=== PATIENT | male | born 1960 | race Two or more races ===

== ENCOUNTER 2024-12-08 10:56 | Inpatient (IN) | payer MEDICAID, OTHER ==
[~2024-12-08] VITALS: Ht 175.3 cm; Wt 81.6 kg
--- NOTE | 2024-12-08 11:32 | ED.PDOC ---
GI ASSESSMENT HPI Comments This is a 64 year old male presenting to the ED with chief complaint of abdominal pain. Patient reports that he has had a right inguinal hernia for the past 9 years, however, he has noticed it get bigger over the past 2 weeks with associated pain, constipation, poor appetite, nausea, SOB, and increased fatigue. Patient notes that the hernia has not been reducible for the past several years. Patient states that his last bowel movement was a week ago. Patient relays that he has been taking Naproxen for pain relief. Patient denies any vomiting, diarrhea, fever, chills, dysuria, or flank pain. Chief Complaint: Abdominal Pain Time Seen by MD: 11:31 Reviewed Notes: Nurses Notes, Medications, Allergies Allergies: Coded Allergies: NO KNOWN ALLERGIES (Unverified , 12/08/24) Information Source: Patient Mode of Arrival: Ambulatory Timing: Weeks Duration: Since onset Prehospital treatment: None Quality: Sharp Vomitus: None Stool: Impaction Severity: Moderate Recent: None Recent Hx of: None Pain Location: Suprapubic Modifying Factors: Nothing Associated sign and symptoms: Nausea, Abdominal Pain Past Medical History Past Medical History (Other): Rt inguinal hernia Surgical History: Denies all surgeries Family History Family History: Reviewed,noncontributory to illness Social History Smoker: Non-Smoker Alcohol: Denies ETOH Use Drugs: Denies Drug Use Lives In: Home Constitutional: reports: fatigue; denies: chills, diaphoresis, fever, malaise, sweats, weakness, others EENTM: denies: blurred vision, double vision, ear bleeding, ear discharge, ear drainage, ear pain, ear ringing, eye pain, eye redness, hearing loss, mouth pain, mouth swelling, nasal discharge, nose bleeding, nose congestion, nose pain, photophobia, tearing, throat pain, throat swelling, voice changes, others Respiratory: reports: shortness of breath; denies: cough, hemoptysis, orthopnea, SOB at rest, SOB with excertion, stridor, wheezing, others Cardiovascular: denies: chest pain, dizzy spells, diaphoresis, Dyspnea on exertion, edema, irregular heart beat, left arm pain, lightheadedness, palpitations, PND, syncope, others Gastrointestinal: reports: abdominal pain, constipated, nausea, poor appetite; denies: abdomen distended, blood streaked bowels, diarrhea, dysphagia, difficulty swallowing, hematemesis, melena, poor fluid intake, rectal bleeding, rectal pain, vomiting, others Genitourinary: denies: burning, dysuria, flank pain, frequency, hematuria, incontinence, penile discharge, penile sore, pain, testicle pain, testicle swelling, urgency, others Neurological: denies: dizziness, fainting, headache, left sided numbness, left sided weakness, numbness, paresthesia, pre-existing deficit, right sided numbness, right sided weakness, seizure, speech problems, tingling, tremors, weakness, others Musculoskeletal: denies: back pain, gout, joint pain, joint swelling, muscle pain, muscle stiffness, neck pain, others Integumetry: denies: bruises, change in color, change in hair/nails, dryness, laceration, lesions, lumps, rash, wounds, others Allergic/Immunocompromised: denies: Difficulty Healing, Frequent Infections, Hives, Itching, others Hematologic/Lymphatic: denies: anemia, blood clots, easy bleeding, easy bruising, swollen glands, others Endocrine: denies: excessive hunger, excessive sweating, excessive thirst, excessive urination, flushing, intolerance to cold, intolerance to heat, unexplained weight gain, unexplained weight loss, others Psychiatric: denies: anxiety, bipolar disorder, depression, hopeless, panic disorder, schizophrenia, sleepless, suicidal, others All Other Systems: Reviewed and Negative Physical Exam General Appearance: Mild Distress HEENT: Other (Pupils and face symmetric. Moist mucous membranes.) Neck: Full Range of Motion, Normal Inspection Respiratory: Decreased Breath Sounds, No Accessory Muscle Use, No Respiratory Distress Cardiovascular: No Edema, No JVD, Regular Rate/Rhythm Breast Exam: Deferred Gastrointestinal: Distended, Epigastric, Tenderness, Other (Right inguinal hernia soft, tender, nonreducible. Epigastric tenderness to palpation. Diffuse abdominal distention.) Genitalia: Deferred Pelvic: Deferred Rectal: Deferred Extremities: Normal inspection, Normal range of motion, Non-tender, No pedal edema Neurologic: Alert (Oriented x4), Other (Ambulatory) Cerebellar Function: NOT DONE Reflexes: NOT DONE Skin: Dry, Normal Color, Warm Lymphatic: NOT DONE Was a procedure done? Was a procedure done?: No GI differential Dx Differential Diagnosis: Bowel Obstruction, Constipation, Diverticular disease, Gastroenteritis, Inflammatory BD, Ischemic Bowel, Pancreatitis, Dehydration, Electrolyte Imbalance, Food Poisoning, Bacterial, Viral, Hypovolemia, Impaction, Ischemic Bowel X-Ray, Labs, Meds, VS Vital Signs Date Time Temp Pulse Resp B/P (MAP) Pulse Ox O2 Delivery O2 Flow Rate FiO2 12/08/24 15:38 101 12/08/24 15:13 Room Air* 0 21 12/08/24 15:12 98.3 67 17 130/86 (101) 99 98.3 12/08/24 15:06 67 17 130/86 12/08/24 10:58 98.2 107 19 142/90 99 98.2 Lab Test 12/08/24 14:48 12/08/24 13:10 12/08/24 12:00 12/08/24 11:24 Range/Units Lactic Acid Level 2.7 *H 3.4 *H 0.4-2.0 mmol/L Troponin I High Sensitivity 75 *H 74 *H 86 *H </=54 ng/L White Blood Count 7.3 4.4-10.8 10^3/uL Red Blood Count 4.80 4.5-5.90 10^6/uL Hemoglobin 14.6 13.5-17.5 g/dL Hematocrit 43.9 41.0-53.0 % Mean Corpuscular Volume 91.5 80.0-100.0 fL Mean Corpuscular Hemoglobin 30.5 28.0-32.0 pg Mean Corpuscular Hemoglobin Concent 33.3 32.0-36.0 g/dL Red Cell Distribution Width 15.0 H 11.8-14.3 % Platelet Count 296 140-450 10^3/uL Mean Platelet Volume 7.9 6.9-10.8 fL Neutrophils (%) (Auto) 79.8 37.0-80.0 % Lymphocytes (%) (Auto) 9.2 L 10.0-50.0 % Monocytes (%) (Auto) 10.4 0.0-12.0 % Eosinophils (%) (Auto) 0.2 0.0-7.0 % Basophils (%) (Auto) 0.4 0.0-2.0 % Neutrophils # (Auto) 5.8 1.6-8.6 10 ^3/uL Lymphocytes # (Auto) 0.7 0.4-5.4 10 ^3/uL Monocytes # (Auto) 0.8 0-1.3 10 ^3/uL Eosinophils # (Auto) 0 0-0.8 10 ^3/uL Basophils # (Auto) 0 0-0.2 10 ^3/uL Nucleated Red Blood Cells 0.2 % Sodium Level 139 136-145 mmol/L Potassium Level 4.3 3.5-5.1 mmol/L Chloride Level 105 98-107 mmol/L Carbon Dioxide Level 21 20-31 mmol/L Anion Gap 13 5-15 Blood Urea Nitrogen 17 9-23 mg/dL Creatinine 1.34 H 0.700-1.30 mg/dL Glomerular Filtration Rate Calc 60 >90 mL/min BUN/Creatinine Ratio 12.7 10.0-20.0 Serum Glucose 119 H 74-106 mg/dL Calcium Level 9.1 8.7-10.4 mg/dL Total Bilirubin 3.1 H 0.2-1.0 mg/dL Aspartate Amino Transferase (AST) 355 H 13-40 U/L Alanine Aminotransferase (ALT) 548 H 7-40 U/L Alkaline Phosphatase 115 46-116 U/L Total Protein 6.4 5.7-8.2 g/dL Albumin 3.9 3.2-4.8 g/dL Lipase 79 H 12-53 U/L Urine Color Yellow Yellow Urine Clarity Turbid H Clear Urine pH 5.5 5.0-9.0 Urine Specific [place] 1.022 1.001-1.035 Urine Protein Trace H Negative Urine Ketones Negative Negative Urine Blood Negative Negative /uL Urine Nitrite Negative Negative Urine Bilirubin Negative Negative Urine Urobilinogen 3 H Negative mg/dL Urine Leukocyte Esterase 2+ Negative /uL Urine RBC 2 0 - 3 /hpf Urine Microscopic WBC 14 H 0-3 /HPF Urine Squamous Epithelial Cells Few <5 /hpf Urine Bacteria Few H None Seen /hpf Urine Mucus Few None Seen Urine Glucose Normal Normal mg/dL Current Medications Medications (Trade) Dose Ordered Sig/Chitra Route Start Time Stop Time Status Last Admin Sodium Chloride 2,100 ml @ 2,100 mls/hr ONCE ONCE IV 12/08/24 11:30 12/08/24 12:29 DC 12/08/24 15:05 Ondansetron HCl (Zofran) 4 mg ONCE ONCE IV 12/08/24 11:30 12/08/24 11:31 DC 12/08/24 15:05 Morphine Sulfate 4 mg ONCE ONCE IV 12/08/24 11:30 12/08/24 11:31 DC 12/08/24 15:06 Pantoprazole Sodium (Protonix) 40 mg ONCE ONCE IV 12/08/24 11:30 12/08/24 11:31 DC 12/08/24 15:04 Lactulose 60 ml ONCE ONCE PO 12/08/24 13:00 12/08/24 13:01 DC 12/08/24 15:05 Spironolactone (Aldactone) 50 mg ONCE ONCE PO 12/08/24 13:00 12/08/24 13:01 DC 12/08/24 15:05 PROCEDURE(s): ABPL - CT AB PEL WO CON-NO ORAL OR IV REASON: diffuse abd pain, n/v, no bm x 5d, R ing hernia pain ORDER NUMBER(s): [id number], ACCESSION NUMBER(s): [id number] EXAM: CT CT AB PEL WO CON-NO ORAL OR IV INDICATION: diffuse abd pain, n/v, no bm x 5d, R ing hernia pain TECHNIQUE: Volumetric multidetector CT images of the abdomen and pelvis were obtained without contrast. All CT scans at this facility use dose modulation, iterative reconstruction, and/or weight based dosing when appropriate to reduce radiation dose to as low as reasonably achievable. COMPARISON: None FINDINGS: [LOWER CHEST]: Medium right and small left pleural effusions. Atelectasis in bilateral lung bases. The cardiac size is normal without pericardial effusion. [LIVER]: Question slight nodular contour to the liver [GALLBLADDER AND BILIARY TREE]: Question biliary sludge [SPLEEN]: Unremarkable. [PANCREAS]: Unremarkable. [ADRENAL GLANDS]: Unremarkable [KIDNEYS]: No hydronephrosis. No nephroureterolithiasis. [BLADDER]: Circumferential bladder wall thickening, which may be seen in the setting of acute versus chronic cystitis and correlate with urinalysis. [REPRODUCTIVE ORGANS]: Unremarkable. [BOWEL/MESENTERY]: Stomach is normal. No CT evidence of bowel obstruction. [ASCITES]: Mild ascites [LYMPHADENOPATHY]: No pathologically enlarged lymph nodes by CT size criteria [VASCULATURE]: No aneurysmal dilatation. [ABDOMINAL WALL]: Fat and bowel containing right inguinal hernia [MUSCULOSKELETAL]: No acute fracture or aggressive focal osseous lesion. Multifocal degenerative change of the visualized spine. IMPRESSION: 1. Medium right and small left pleural effusions. 2. Question slight nodular contour to the liver. Correlate for underlying liver disease. 3. Mild ascites. 4. Circumferential bladder wall thickening, which may be seen in the setting of acute versus chronic cystitis and correlate with urinalysis. 5. Fat and bowel containing hernia with slight edema. Correlate with clinical exam to exclude incarceration. X-Ray, Labs, Meds, VS Comment 64-year-old male with a history of right inguinal hernia complaining of hernia pain, diffuse abdominal pain, distention, constipation, nausea and no bowel movement for the past week Vitals remarkable for heart rate 107, BP 102/90 Exam remarkable for diffuse abdominal distention, epigastric and right inguinal hernia area tenderness Rhythm strip independently interpreted by me: Sinus tach, rate 107, no ectopy. CT abdomen and pelvis IMPRESSION: 1. Medium right and small left pleural effusions. 2. Question slight nodular contour to the liver. Correlate for underlying liver disease. 3. Mild ascites. 4. Circumferential bladder wall thickening, which may be seen in the setting of acute versus chronic cystitis and correlate with urinalysis. 5. Fat and bowel containing hernia with slight edema. Correlate with clinical exam to exclude incarceration. CBC unremarkable, CMP creatinine 1.34, total bili 3.1, AST 355, ALT 548, lipase 79. lactate 3.4, troponins 86, 74 and 75, UA abnormal consistent with UTI Patient treated with the following in the ED: 30 cc/kilogram IV normal saline bolus, morphine 4 mg IV, Zofran 4 mg IV, lactulose 60 mL p.o., Aldactone 50 mg p.o., cefepime 2 g IV, aspirin 325 mg p.o. On re-evaluation, patient states pain has improved. Vitals were stable. Plan is to admit the patient for IV antibiotics, bowel decompression, surgical/GI and Cardiology evaluation. Time of 1ST Reevaluation: 12:30 Reevaluation 1ST: Unchanged Patient Education/Counseling: Diagnosis, Treatment Family Education/Counseling: No Family Present SEPSIS Sepsis Screen Date sepsis recognized/suspect: Dec 08, 2024 Time Sepsis recognized/suspect: 1058 Recent Procedure: No On Antibiotic Therapy: No Respiratory Rate >20: No Heart Rate >90: Yes Temp<36 C (96.8 F) or >38.3 C: No SBP <90 or MAP <65 mmHG: No New Acute Mental Status Change: No Is the patient on CPAP, BIPAP,: No Physician Orders Ct Ab Pel Wo Con-No Oral Or Iv (12/08/24 11:24) Blood Culture (12/08/24 11:24) Electrocardigram (12/08/24 11:24) * Surgical Consult (12/08/24 ) Cefepime 2gm/50ml Ns (Maxipime 2gm/50ml) (12/08/24 21:45) Aspirin Tablet (12/08/24 21:45) Vital Signs Date Time Temp Pulse Resp B/P (MAP) Pulse Ox O2 Delivery O2 Flow Rate FiO2 12/08/24 15:38 101 12/08/24 15:13 Room Air* 0 21 12/08/24 15:12 98.3 67 17 130/86 (101) 99 98.3 12/08/24 15:06 67 17 130/86 12/08/24 10:58 98.2 107 19 142/90 99 98.2 Laboratory Tests Test 12/08/24 12:00 12/08/24 14:48 Lactic Acid Level 3.4 mmol/L (0.4-2.0) *H 2.7 mmol/L (0.4-2.0) *H White Blood Count 7.3 10^3/uL (4.4-10.8) Medications Medications Dose Ordered Sig/Chitra Route Start Time Stop Time Status Last Admin Dose Admin Lactulose 60 ml ONCE ONCE PO 12/08/24 13:00 12/08/24 13:01 DC 12/08/24 15:05 Morphine Sulfate 4 mg ONCE ONCE IV 12/08/24 11:30 12/08/24 11:31 DC 12/08/24 15:06 Ondansetron HCl 4 mg ONCE ONCE IV 12/08/24 11:30 12/08/24 11:31 DC 12/08/24 15:05 Pantoprazole Sodium 40 mg ONCE ONCE IV 12/08/24 11:30 12/08/24 11:31 DC 12/08/24 15:04 Sodium Chloride 2,100 ml @ 2,100 mls/hr ONCE ONCE IV 12/08/24 11:30 12/08/24 12:29 DC 12/08/24 15:05 Spironolactone 50 mg ONCE ONCE PO 12/08/24 13:00 12/08/24 13:01 DC 12/08/24 15:05 Reassessment Post Fluid SEPSIS FOCUS EXAM(REASSESSMENT Sepsis reassessment focused exam completed. Date: 12/08/24 Time 21:48 Departure 1 Departure Time of Disposition: 13:28 Impression: Primary Impression: Right inguinal hernia Additional Impressions: Ascites Qualified Codes: R18.8 - Other ascites Pleural effusion UTI (urinary tract infection) Elevated troponin Sepsis Disposition: ADMITTED INPATIENT Admit to: Tele Condition: Guarded Critical Care Note Critical Care Time?: Yes (45 min-critical care time only) Critical care comment: Critical care time including multiple bedside re-evaluations, review of lab and imaging studies, and discussion of the case with the admitting provider. Patient is high risk for hemodynamic, respiratory and/or metabolic decompensation. Stability Stability form required: No Heart Score Heart Score: Heart Score Response (Comments) Value History N/A 0 EKG N/A 0 Age N/A 0 Risk Factors N/A 0 Troponin N/A 0 Total 0 I personally scribed for FAUSTINO BRODY MD ([email or web address]) on 12/08/24 at 11:32. Electronically submitted by Moose Ellsworth ([email or web address]). I personally scribed for FAUSTINO BRODY MD ([email or web address]) on 12/08/24 at 12:58. Electronically submitted by Moose Ellsworth ([email or web address]). FAUSTINO BRODY MD Dec 08, 2024 11:32
--- NOTE | 2024-12-08 12:29 | DVH ---
EXAM: CT CT AB PEL WO CON-NO ORAL OR IV INDICATION: diffuse abd pain, n/v, no bm x 5d, R ing hernia pain TECHNIQUE: Volumetric multidetector CT images of the abdomen and pelvis were obtained without contras t. All CT scans at this facility use dose modulation, iterative reconstruction, and/or weight based d osing when appropriate to reduce radiation dose to as low as reasonably achievable. COMPARISON: None FINDINGS: [LOWER CHEST]: Medium right and small left pleural effusions. Atelectasis in bilateral lung bases. T he cardiac size is normal without pericardial effusion. [LIVER]: Question slight nodular contour to the liver [GALLBLADDER AND BILIARY TREE]: Question biliary sludge [SPLEEN]: Unremarkable. [PANCREAS]: Unremarkable. [ADRENAL GLANDS]: Unremarkable [KIDNEYS]: No hydronephrosis. No nephroureterolithiasis. [BLADDER]: Circumferential bladder wall thickening, which may be seen in the setting of acute versus chronic cystitis and correlate with urinalysis. [REPRODUCTIVE ORGANS]: Unremarkable. [BOWEL/MESENTERY]: Stomach is normal. No CT evidence of bowel obstruction. [ASCITES]: Mild ascites [LYMPHADENOPATHY]: No pathologically enlarged lymph nodes by CT size criteria [VASCULATURE]: No aneurysmal dilatation. [ABDOMINAL WALL]: Fat and bowel containing right inguinal hernia [MUSCULOSKELETAL]: No acute fracture or aggressive focal osseous lesion. Multifocal degenerative hendricks ge of the visualized spine. IMPRESSION: 1. Medium right and small left pleural effusions. 2. Question slight nodular contour to the liver. Correlate for underlying liver disease. 3. Mild ascites. 4. Circumferential bladder wall thickening, which may be seen in the setting of acute versus chronic cystitis and correlate with urinalysis. 5. Fat and bowel containing hernia with slight edema. Correlate with clinical exam to exclude incarc eration.
[2024-12-08 12:33] LABS: Hematocrit 43.9 % (41.0-53.0); Hemoglobin 14.6 g/dL (13.5-17.5); Mean Corpuscular Hemoglobin 30.5 pg (28.0-32.0); Mean Corpuscular Volume 91.5 fL (80.0-100.0); Nucleated Red Blood Cells % 0.2 %
[2024-12-08 12:50] LABS: Albumin 3.9 g/dL (3.2-4.8); Alkaline Phosphatase 115 U/L (46-116); Anion Gap 13 (5-15); BUN/Creatinine Ratio 12.7 (10.0-20.0); Blood Urea Nitrogen 17 mg/dL (9-23); Calcium 9.1 mg/dL (8.7-10.4); Carbon Dioxide 21 mmol/L (20-31); Chloride 105 mmol/L (98-107); Potassium 4.3 mmol/L (3.5-5.1); Sodium 139 mmol/L (136-145); Total Protein 6.4 g/dL (5.7-8.2)
[2024-12-08 12:53] LABS: Alanine Aminotransferase 548 U/L (7-40); Bilirubin, Total 3.1 mg/dL (0.2-1.0); Lipase 79 U/L (12-53)
[2024-12-08 13:02] LABS: Glucose 119 mg/dL (74-106)
[2024-12-08 13:08] LABS: Lactic Acid w/Reflex 3.4 mmol/L (0.4-2.0)
[2024-12-08] MEDS: PANTOPRAZOLE 40 MG/10 ML VIAL INJ IV ONE (15:04)
[2024-12-08] MEDS: SPIRONOLACTONE 25 MG TAB PO ONE (15:05)
[2024-12-08] MEDS: LACTULOSE 20Gm/30ML SOLN PO ONE (15:05)
[2024-12-08] MEDS: ONDANSETRON HCL 4 MG/2 ML VIAL IV ONE (15:05)
[2024-12-08] MEDS: SODIUM CHLORIDE 0.9% 2,100 ML IV ONE (15:05)
[2024-12-08] MEDS: MORPHINE SULFATE 4 MG/ML SYR/VIAL IV ONE (15:06)
[2024-12-08 16:07] LABS: Urine Protein, UAD TRACE (Negative)
--- NOTE | 2024-12-08 18:56 | ECG ---
[facility] Test Date: 2024-12-08 Test Time: 15:38:07 Pat Name: DANIEL ESCOBEDO Department: Room: Gender: M Information Operator: [place] : [id number] Requested By: FAUSTINO GRUBBS Order Number: [id number] Reading MD: Yoel Phillip Measurements Intervals [place] Rate: 101 P: 57 [place]: 129 QRS: 58 QRSD: 181 T: 263 QT: 340 QTc: 441 Interpretive Statements Sinus tachycardia Probable left atrial enlargement Nonspecific intraventricular conduction delay Repol abnrm suggests ischemia, lateral leads Electronically Signed On 12-08-2024 19:19:44 PDT by Yoel Phillip Please click the below link to view image of tracing.
[2024-12-08] MEDS ORDERED: ACETAMINOPHEN 325 MG TAB PO PRN (23:00)
[2024-12-08] MEDS ORDERED: HYDROcodone-ACET 5/325MG TAB PO PRN (23:00)
[2024-12-08] MEDS ORDERED: ONDANSETRON HCL 4 MG/2 ML VIAL IV PRN (23:00)
[2024-12-09] VITALS (8 sets, daily range): BP systolic 87–114; BP diastolic 50–79; PULSE 72–100; RESP 15–20; TEMP 97.4–98; O2SAT 95–100
--- NOTE | 2024-12-09 00:05 | DVH ---
INDICATION: Transaminitis TECHNIQUE: Multiple real-time sonographic images were obtained of the right upper quadrant. COMPARISON: None FINDINGS: The liver demonstrates homogenous echotexture without focal mass lesions. The liver measure s 18.9 cm. There is no intrahepatic or extrahepatic ductal dilatation. The common duct measures 0. 5 mm. Stones and sludge in the gallbladder. No wall thickening or inflammatory changes. The gallbladder wa ll measures 0.2 mm and is within normal limits. The right kidney measures 1.2 cm. The right kidney is normal in contour, size, and shape. The echo genicity is normal. There is no hydronephrosis. The pancreas is not well visualized due to overlying bowel gas. Small volume of ascites. Small pleural effusions. IMPRESSION: 1. Gallstones without acute cholecystitis. 2. Small volume of ascites. 3. Bilateral pleural effusions.
[2024-12-09] MEDS: CEFEPIME 2GM/50ML NS 50 ML IV ONE (02:54)
[2024-12-09] MEDS: MORPHINE SULFATE 4 MG/ML SYR/VIAL ONE (04:26)
--- NOTE | 2024-12-09 04:26 | DVHHP2 ---
History of Present Illness Reason for Visit: Generalized weakness History of Present Illness 64-year-old male presents for evaluation of generalized weakness. Patient reports a two week history of generalized weakness with multiple complaints including shortness for breath, fatigue, nausea and decreased appetite. He also reports having a right inguinal hernia which he has noticed increasing in size over the past couple of weeks. He states not having a primary care provider and not seen one for over 20 years. Past Medical History Denies Past Surgical History Denies Family History Noncontributory Smoke: No ALCOHOL: none Drugs: None Lives: with Family Review of Systems Review of Systems Review of systems are currently negative otherwise addressed in HPI. Allergies: Coded Allergies: NO KNOWN ALLERGIES (Unverified , 12/08/24) Medications Current Medications Medications Dose Ordered Sig/Chitra Route Start Time Stop Time Status Last Admin Dose Admin Pantoprazole Sodium 40 mg DAILY IV 12/09/24 10:00 Ceftriaxone Sodium 50 ml @ 100 mls/hr DAILY@09 IV 12/09/24 09:00 Acetaminophen/ Hydrocodone Bitart 1 tab Q4HP PRN PO 12/08/24 23:00 Ondansetron HCl 4 mg Q4HP PRN IV 12/08/24 23:00 Acetaminophen 650 mg Q6HP PRN PO 12/08/24 23:00 Morphine Sulfate 2 mg Q6HPRN PRN IV 12/08/24 23:00 Exam Vital Signs Vital Signs Date Time Temp Pulse Resp B/P (MAP) Pulse Ox O2 Delivery O2 Flow Rate FiO2 12/09/24 04:17 97.8 105 16 115/69 (84) 94 97.8 12/08/24 15:13 Room Air* 0 21 Exam Gen: 64-year-old male in mild distress Skin: Warm, dry, normal color and texture, no rash. HEENT: Normocephalic atraumatic, mucous membranes moist and pink. Neck: Cervical and supraclavicular nodes normal without enlargement, trachea is midline, thyroid gland is normal without masses. Pulmonary: Clear to auscultation and percussion bilaterally. Cardiac: Regular rate and rhythm. No murmur Abdomen: Soft, nontender, nondistended, bowel sounds present all 4 quadrants, no guarding, no rigidity, no organomegaly. Extremities: No cyanosis, clubbing, right inguinal hernia, reducible Neuro: Cranial nerves II through XII grossly intact, normal affect and speech, no focal motor deficits. Labs/Xrays ORDERING PHYSICIAN: RICH STORM PROCEDURE(s): LIVUS - LIVER REASON: Transaminitis ORDER NUMBER(s): [id number], ACCESSION NUMBER(s): [id number] INDICATION: Transaminitis TECHNIQUE: Multiple real-time sonographic images were obtained of the right upper quadrant. COMPARISON: None FINDINGS: The liver demonstrates homogenous echotexture without focal mass lesions. The liver measures 18.9 cm. There is no intrahepatic or extrahepatic ductal dilatation. The common duct measures 0.5 mm. Stones and sludge in the gallbladder. No wall thickening or inflammatory changes. The gallbladder wall measures 0.2 mm and is within normal limits. The right kidney measures 1.2 cm. The right kidney is normal in contour, size, and shape. The echogenicity is normal. There is no hydronephrosis. The pancreas is not well visualized due to overlying bowel gas. Small volume of ascites. Small pleural effusions. IMPRESSION: 1. Gallstones without acute cholecystitis. 2. Small volume of ascites. 3. Bilateral pleural effusions. RING PHYSICIAN: FAUSTINO BRODY MD PROCEDURE(s): ABPL - CT AB PEL WO CON-NO ORAL OR IV REASON: diffuse abd pain, n/v, no bm x 5d, R ing hernia pain ORDER NUMBER(s): [id number], ACCESSION NUMBER(s): [id number] EXAM: CT CT AB PEL WO CON-NO ORAL OR IV INDICATION: diffuse abd pain, n/v, no bm x 5d, R ing hernia pain TECHNIQUE: Volumetric multidetector CT images of the abdomen and pelvis were obtained without contrast. All CT scans at this facility use dose modulation, iterative reconstruction, and/or weight based dosing when appropriate to reduce radiation dose to as low as reasonably achievable. COMPARISON: None FINDINGS: [LOWER CHEST]: Medium right and small left pleural effusions. Atelectasis in bilateral lung bases. The cardiac size is normal without pericardial effusion. [LIVER]: Question slight nodular contour to the liver [GALLBLADDER AND BILIARY TREE]: Question biliary sludge [SPLEEN]: Unremarkable. [PANCREAS]: Unremarkable. [ADRENAL GLANDS]: Unremarkable [KIDNEYS]: No hydronephrosis. No nephroureterolithiasis. [BLADDER]: Circumferential bladder wall thickening, which may be seen in the setting of acute versus chronic cystitis and correlate with urinalysis. [REPRODUCTIVE ORGANS]: Unremarkable. [BOWEL/MESENTERY]: Stomach is normal. No CT evidence of bowel obstruction. [ASCITES]: Mild ascites [LYMPHADENOPATHY]: No pathologically enlarged lymph nodes by CT size criteria [VASCULATURE]: No aneurysmal dilatation. [ABDOMINAL WALL]: Fat and bowel containing right inguinal hernia [MUSCULOSKELETAL]: No acute fracture or aggressive focal osseous lesion. Multifocal degenerative change of the visualized spine. IMPRESSION: 1. Medium right and small left pleural effusions. 2. Question slight nodular contour to the liver. Correlate for underlying liver disease. 3. Mild ascites. 4. Circumferential bladder wall thickening, which may be seen in the setting of acute versus chronic cystitis and correlate with urinalysis. 5. Fat and bowel containing hernia with slight edema. Correlate with clinical exam to exclude incarceration. ATED BY: DINA ZAFAR MD Labs Test 12/08/24 14:48 12/08/24 12:00 12/08/24 11:24 Range/Units Lactic Acid Level 2.7 *H 0.4-2.0 mmol/L Troponin I High Sensitivity 75 *H </=54 ng/L White Blood Count 7.3 4.4-10.8 10^3/uL Red Blood Count 4.80 4.5-5.90 10^6/uL Hemoglobin 14.6 13.5-17.5 g/dL Hematocrit 43.9 41.0-53.0 % Mean Corpuscular Volume 91.5 80.0-100.0 fL Mean Corpuscular Hemoglobin 30.5 28.0-32.0 pg Mean Corpuscular Hemoglobin Concent 33.3 32.0-36.0 g/dL Red Cell Distribution Width 15.0 H 11.8-14.3 % Platelet Count 296 140-450 10^3/uL Mean Platelet Volume 7.9 6.9-10.8 fL Neutrophils (%) (Auto) 79.8 37.0-80.0 % Lymphocytes (%) (Auto) 9.2 L 10.0-50.0 % Monocytes (%) (Auto) 10.4 0.0-12.0 % Eosinophils (%) (Auto) 0.2 0.0-7.0 % Basophils (%) (Auto) 0.4 0.0-2.0 % Neutrophils # (Auto) 5.8 1.6-8.6 10 ^3/uL Lymphocytes # (Auto) 0.7 0.4-5.4 10 ^3/uL Monocytes # (Auto) 0.8 0-1.3 10 ^3/uL Eosinophils # (Auto) 0 0-0.8 10 ^3/uL Basophils # (Auto) 0 0-0.2 10 ^3/uL Nucleated Red Blood Cells 0.2 % Sodium Level 139 136-145 mmol/L Potassium Level 4.3 3.5-5.1 mmol/L Chloride Level 105 98-107 mmol/L Carbon Dioxide Level 21 20-31 mmol/L Anion Gap 13 5-15 Blood Urea Nitrogen 17 9-23 mg/dL Creatinine 1.34 H 0.700-1.30 mg/dL Glomerular Filtration Rate Calc 60 >90 mL/min BUN/Creatinine Ratio 12.7 10.0-20.0 Serum Glucose 119 H 74-106 mg/dL Calcium Level 9.1 8.7-10.4 mg/dL Total Bilirubin 3.1 H 0.2-1.0 mg/dL Aspartate Amino Transferase (AST) 355 H 13-40 U/L Alanine Aminotransferase (ALT) 548 H 7-40 U/L Alkaline Phosphatase 115 46-116 U/L B-Type Natriuretic Peptide 2054.46 0-100 pg/mL Total Protein 6.4 5.7-8.2 g/dL Albumin 3.9 3.2-4.8 g/dL Lipase 79 H 12-53 U/L Urine Color Yellow Yellow Urine Clarity Turbid H Clear Urine pH 5.5 5.0-9.0 Urine Specific [place] 1.022 1.001-1.035 Urine Protein Trace H Negative Urine Ketones Negative Negative Urine Blood Negative Negative /uL Urine Nitrite Negative Negative Urine Bilirubin Negative Negative Urine Urobilinogen 3 H Negative mg/dL Urine Leukocyte Esterase 2+ Negative /uL Urine RBC 2 0 - 3 /hpf Urine Microscopic WBC 14 H 0-3 /HPF Urine Squamous Epithelial Cells Few <5 /hpf Urine Bacteria Few H None Seen /hpf Urine Mucus Few None Seen Urine Glucose Normal Normal mg/dL SEPSIS Sepsis Screen Date sepsis recognized/suspect: Dec 09, 2024 Time Sepsis recognized/suspect: 417 Recent Procedure: No On Antibiotic Therapy: Yes Respiratory Rate >20: No Heart Rate >90: Yes Temp<36 C (96.8 F) or >38.3 C: No SBP <90 or MAP <65 mmHG: No New Acute Mental Status Change: No Is the patient on CPAP, BIPAP,: No Physician Orders Pantoprazole (Protonix) (12/09/24 10:00) * Gi Dvh Foam Rubber Curer (12/08/24 22:56) Acute Hepatitis Panel (12/08/24 22:56) LIVER (12/08/24 22:56) Ceftriaxone 1gm/50ml (Rocephin) (12/09/24 09:00) Admit (12/08/24 22:56) Hydrocodone-Acet 5/325mg Tab ([place] 5/32 (12/08/24 23:00) Ondansetron Hcl (Zofran) (12/08/24 23:00) Complete Blood Count (12/09/24 04:00) Comprehensive Metabolic Panel (12/09/24 04:00) Condition: Stable (12/08/24 22:56) Acetaminophen Tablet (Tylenol Tablet) (12/08/24 23:00) Clear Liq Diet (12/09/24 Breakfast) Bedrest With Bathroom Privileg (12/08/24 22:56) Morphine Sulfate Injection (12/08/24 23:00) * Cardiology Consult (12/09/24 04:20) Carvedilol Tablet (Coreg Tablet) (12/09/24 10:00) Furosemide Tablet (Lasix Tablet) (12/09/24 10:00) Aspirin Tablet (12/09/24 10:00) Thyroid Stimulating Hormone (12/09/24 04:20) Lipid Panel (12/09/24 04:20) Hemoglobin A1c (12/09/24 04:20) Vital Signs Date Time Temp Pulse Resp B/P (MAP) Pulse Ox O2 Delivery O2 Flow Rate FiO2 12/09/24 04:17 97.8 105 16 115/69 (84) 94 97.8 Medications Medications Dose Ordered Sig/Chitra Route Start Time Stop Time Status Last Admin Dose Admin Aspirin 325 mg ONCE ONCE PO 12/08/24 21:45 12/08/24 21:58 DC 12/09/24 02:54 325 MG Cefepime HCl 50 ml @ 50 mls/hr ONCE ONCE IV 12/08/24 21:45 12/08/24 22:44 DC 12/09/24 02:54 50 MLS/HR Assessment/Plan Assessment/Plan Assessment Acute abdominal pain Acute heart failure Transaminitis UTI Acute kidney injury Elevated troponin, possible demand ischemia Right inguinal hernia Plan Admit the patient to [facility] to the hospitalist Surgical consultation GI consult Cardiology consultation Continue treatment per orders. Plan discussed with: Patient My Orders Orders - RICH STORM Procedure Category Date Status Time Pantoprazole PHA 12/09/24 In Process (Protonix) 10:00 * Gi Dvh Foam Rubber Curer CONS 12/08/24 Transmitted 22:56 Acute Hepatitis Panel LAB 12/08/24 In Process 22:56 LIVER US 12/08/24 Resulted 22:56 Ceftriaxone 1gm/50ml PHA 12/09/24 In Process (Rocephin) 09:00 Admit ADMIT 12/08/24 Transmitted 22:56 Hydrocodone-Acet PHA 12/08/24 In Process 5/325mg Tab (Gypsum 23:00 Ondansetron Hcl PHA 12/08/24 In Process (Zofran) 23:00 Complete Blood Count LAB 12/09/24 Logged 04:00 Comprehensive LAB 12/09/24 Logged Metabolic Panel 04:00 Condition: Stable ALIYA 12/08/24 In Process 22:56 Acetaminophen Tablet PHA 12/08/24 In Process (Tylenol Tablet) 23:00 Clear Liq Diet DIET 12/09/24 Transmitted Breakfast Bedrest With Bathroom ALIYA 12/08/24 In Process Privileg 22:56 Morphine Sulfate PHA 12/08/24 In Process Injection 23:00 * Cardiology Consult CONS 12/09/24 Verified 04:20 Carvedilol Tablet PHA 12/09/24 Verified (Coreg Tablet) 10:00 Furosemide Tablet PHA 12/09/24 Verified (Lasix Tablet) 10:00 Aspirin Tablet PHA 12/09/24 Verified 10:00 Thyroid Stimulating LAB 12/09/24 Verified Hormone 04:20 Lipid Panel LAB 12/09/24 Verified 04:20 Hemoglobin A1c LAB 12/09/24 Verified 04:20 Date of Service: Dec 08, 2024 Billing Provider: RICH STORM Common Visit Codes: [id number] INP/OBS CARE (HIGH) RICH STORM Dec 09, 2024 04:26
[2024-12-09] MEDS: MORPHINE SULFATE INJ 2 MG/ml SYRG IV PRN (04:27)
[2024-12-09 05:17] LABS: Hematocrit 43.3 % (41.0-53.0); Hemoglobin 14.3 g/dL (13.5-17.5); Mean Corpuscular Hemoglobin 30.4 pg (28.0-32.0); Mean Corpuscular Volume 92.0 fL (80.0-100.0); Nucleated Red Blood Cells % 0.2 %
[2024-12-09] MEDS: FUROSEMIDE 20 MG TAB PO SCH (05:23)
[2024-12-09 05:30] LABS: Albumin 3.9 g/dL (3.2-4.8); Alkaline Phosphatase 115 U/L (46-116); Anion Gap 14 (5-15); BUN/Creatinine Ratio 13.9 (10.0-20.0); Blood Urea Nitrogen 20 mg/dL (9-23); Calcium 9.0 mg/dL (8.7-10.4); Carbon Dioxide 20 mmol/L (20-31); Chloride 106 mmol/L (98-107); Glucose 90 mg/dL (74-106); Potassium 4.6 mmol/L (3.5-5.1); Sodium 140 mmol/L (136-145); Total Protein 6.3 g/dL (5.7-8.2)
[2024-12-09 05:32] LABS: Alanine Aminotransferase 584 U/L (7-40); Bilirubin, Total 2.9 mg/dL (0.2-1.0)
[2024-12-09 06:17] LABS: Triglycerides 72 mg/dL (< 150)
[2024-12-09 06:19] LABS: Cholesterol 94 mg/dL (< 200)
[2024-12-09 06:22] LABS: HDL Cholesterol 18 mg/dL (40-59)
[2024-12-09] MEDS: CARVEDILOL 3.125 MG TAB PO SCH (09:11)
[2024-12-09] MEDS: PANTOPRAZOLE 40 MG/10 ML VIAL INJ IV SCH (09:18)
[2024-12-09] MEDS ORDERED: FUROSEMIDE 20 MG TAB PO SCH (10:00)
--- NOTE | 2024-12-09 10:04 | DVHINCON2 ---
Date Seen: Dec 09, 2024 Referring Physician PAUL Saenz Reason for Consultation CHF History of Present Illness This is a 64-year-old man who presented to the emergency room with a chief complaint of shortness of breath for one month. The patient complains of progressive shortness of breath worse during the past couple of days and associated with PND, YANG, orthopnea, bilateral lower extremity edema R>L, increased abdominal girth, and some dizziness. Denies chest pain, palpitations, diaphoresis, or syncopal events. He underwent a 12 lead electrocardiogram revealing a sinus rhythm with lateral T-wave inversion nonspecific changes to rest of leads. Serial troponin levels peaked at 86 ng/L. Per patient, he last saw a PCP at 27 years old. States he only takes naproxen therapy OTC. Only reports a significant medical history of femur dislocation and right inguinal hernia without repair. Past Medical History Past medical history reviewed. No other significant than mentioned above. Past Surgical History Past surgical history reviewed. No other significant than mentioned above. Family History Family history reviewed. Not significant for CV disease. Social History Admits to occasional alcohol and tobacco use. Denies the use of illicit drugs. Allergies: Coded Allergies: NO KNOWN ALLERGIES (Unverified , 12/08/24) Home Meds Naproxen OTC PRN Current Medications Current Medications Medications (Trade) Dose Ordered Sig/Chitra Route PRN Reason Start Time Stop Time Status Last Admin Pantoprazole Sodium (Protonix) 40 mg DAILY IV 12/09/24 10:00 12/09/24 09:18 Ceftriaxone Sodium 50 ml @ 100 mls/hr DAILY@09 IV 12/09/24 09:00 12/09/24 09:18 Acetaminophen/ Hydrocodone Bitart ([place] 5/325MG Tab) 1 tab Q4HP PRN PO MODERATE PAIN (4-6 PAIN SCALE) 12/08/24 23:00 Ondansetron HCl (Zofran) 4 mg Q4HP PRN IV NAUSEA / VOMITING 12/08/24 23:00 Acetaminophen (Tylenol Tablet) 650 mg Q6HP PRN PO PAIN SCALE 1-3 OR TEMP>100.4 12/08/24 23:00 Morphine Sulfate 2 mg Q6HPRN PRN IV SEVERE PAIN (7-10 PAIN SCALE) 12/08/24 23:00 12/09/24 04:27 Carvedilol (Coreg Tablet) 3.125 mg Q12HR PO 12/09/24 10:00 12/09/24 09:11 Furosemide (Lasix Tablet) 20 mg DAILY PO 12/09/24 10:00 12/09/24 04:27 DC Aspirin 81 mg DAILY PO 12/09/24 10:00 12/09/24 09:11 Furosemide (Lasix Tablet) 40 mg DAILY PO 12/09/24 04:30 12/09/24 09:54 DC 12/09/24 09:12 Furosemide (Lasix Injection) 40 mg BIDD IV 12/09/24 18:00 UNV Enoxaparin Sodium (Lovenox) 30 mg DAILY SC 12/09/24 10:00 UNV Empaglifozin (Jardiance) 10 mg DAILY PO 12/09/24 10:00 UNV Sacubitril/ Valsartan (Entresto 24-26 Mg tab) 0.5 tab BID PO 12/09/24 10:00 UNV Review of Systems Constitutional: No symptom reported Ears, Nose, & Throat: No symptom reported Eyes: No symptom reported Neurological: No symptoms reported Pulmonary/Respiratory: SOB, YANG, PND, orthopnea Cardiovascular: BLE edema Gastrointestinal: Increased abdominal girth Genitourinary: No symptom reported Musculoskeletal: No symptom reported Skin: No symptom reported Psychiatric: No symptom reported Endocrine: No symptom reported Hemotologic/Lymphatic: No symptom reported Vital Signs Vital Signs Date Time Temp Pulse Resp B/P (MAP) Pulse Ox O2 Delivery O2 Flow Rate FiO2 12/09/24 09:12 114/79 12/09/24 09:11 99 12/09/24 09:00 97.4 20 100 97.4 12/09/24 07:15 Room Air* 0 21 Physical Exam General Appearance: Cooperative. Well developed. Well nourished. In no acute distress Head Exam: Normal inspection Neck Exam: Normal inspection. Non-tender. Normal alignment Pulmonary/Respiratory: Chest non-tender. Crackles to bilateral breath sounds Cardiovascular/Chest: Regular rate and rhythm. S1, S2. Sinus rhythm with T- wave inversion to lateral leads. Systolic murmur III/. No JVD. Peripheral Pulses: 2+ Radial (R). 2+ Radial (L). 2+ Pedal (R). 2+ Pedal (L) Abdominal Exam: Normal bowel sounds. Soft. Ankle Exam: Right ankle edema Lower extremities: Right lower extremity edema Neuro/Mental Status: A&O x4. Coherent Thoughts/Psych: Normal thought pattern. Appropriate mood and affect. Good judgement and insight Appearance: In no acute distress Skin Exam: Normal inspection. Normal color. Warm. Dry Labs/Diagnostic Data Labs Test 12/09/24 05:00 12/08/24 14:48 12/08/24 12:00 12/08/24 11:24 Range/Units White Blood Count 7.3 4.4-10.8 10^3/uL Red Blood Count 4.71 4.5-5.90 10^6/uL Hemoglobin 14.3 13.5-17.5 g/dL Hematocrit 43.3 41.0-53.0 % Mean Corpuscular Volume 92.0 80.0-100.0 fL Mean Corpuscular Hemoglobin 30.4 28.0-32.0 pg Mean Corpuscular Hemoglobin Concent 33.1 32.0-36.0 g/dL Red Cell Distribution Width 15.7 H 11.8-14.3 % Platelet Count 291 140-450 10^3/uL Mean Platelet Volume 7.9 6.9-10.8 fL Neutrophils (%) (Auto) 74.7 37.0-80.0 % Lymphocytes (%) (Auto) 10.5 10.0-50.0 % Monocytes (%) (Auto) 14.1 H 0.0-12.0 % Eosinophils (%) (Auto) 0.3 0.0-7.0 % Basophils (%) (Auto) 0.4 0.0-2.0 % Neutrophils # (Auto) 5.5 1.6-8.6 10 ^3/uL Lymphocytes # (Auto) 0.8 0.4-5.4 10 ^3/uL Monocytes # (Auto) 1.0 0-1.3 10 ^3/uL Eosinophils # (Auto) 0 0-0.8 10 ^3/uL Basophils # (Auto) 0 0-0.2 10 ^3/uL Nucleated Red Blood Cells 0.2 % Sodium Level 140 136-145 mmol/L Potassium Level 4.6 3.5-5.1 mmol/L Chloride Level 106 98-107 mmol/L Carbon Dioxide Level 20 20-31 mmol/L Anion Gap 14 5-15 Blood Urea Nitrogen 20 9-23 mg/dL Creatinine 1.44 H 0.700-1.30 mg/dL Glomerular Filtration Rate Calc 55 >90 mL/min BUN/Creatinine Ratio 13.9 10.0-20.0 Serum Glucose 90 74-106 mg/dL Hemoglobin A1c 5.6 <5.7 % A1C Calcium Level 9.0 8.7-10.4 mg/dL Total Bilirubin 2.9 H 0.2-1.0 mg/dL Aspartate Amino Transferase (AST) 375 H 13-40 U/L Alanine Aminotransferase (ALT) 584 H 7-40 U/L Alkaline Phosphatase 115 46-116 U/L Total Protein 6.3 5.7-8.2 g/dL Albumin 3.9 3.2-4.8 g/dL Triglycerides Level 72 < 150 mg/dL Cholesterol Level 94 < 200 mg/dL LDL Cholesterol 70 < 100 mg/dL HDL Cholesterol 18 L 40-59 mg/dL Thyroid Stimulating Hormone (TSH) 5.15 H 0.55-4.78 uIU/mL Lactic Acid Level 2.7 *H 0.4-2.0 mmol/L Troponin I High Sensitivity 75 *H </=54 ng/L B-Type Natriuretic Peptide 2054.46 0-100 pg/mL Lipase 79 H 12-53 U/L Urine Color Yellow Yellow Urine Clarity Turbid H Clear Urine pH 5.5 5.0-9.0 Urine Specific [place] 1.022 1.001-1.035 Urine Protein Trace H Negative Urine Ketones Negative Negative Urine Blood Negative Negative /uL Urine Nitrite Negative Negative Urine Bilirubin Negative Negative Urine Urobilinogen 3 H Negative mg/dL Urine Leukocyte Esterase 2+ Negative /uL Urine RBC 2 0 - 3 /hpf Urine Microscopic WBC 14 H 0-3 /HPF Urine Squamous Epithelial Cells Few <5 /hpf Urine Bacteria Few H None Seen /hpf Urine Mucus Few None Seen Urine Glucose Normal Normal mg/dL Assessment NSTEMI, questionable type 1 [place] decompensated HFrEF, NYHA Class III-IV/Stage D Ischemic vs non-ischemic cardiomyopathy Rule out aortic valve disease Pre-diabetes, newly diagnosed Elevated LFTs Likely YOVANA on CKD Cholelithiasis Plan/Recommendation (Dr. Fenton) We will continue further cardiac evaluation with a transthoracic echocardiogram to rule out structural heart disease. In the meantime, continue preload and afterload reduction, strict I&Os, daily weight, and fluid restriction. Initiate GDMT for HFrEF and uptitrate as tolerated. Initiate DVT/VTE prophylaxis. Monitor ECG changes closely and notify. Thank you for allowing us to participate in this patient's care. Please call if you have any questions or concerns. This medical document was created using an electronic medical record system with voice recognition software and computerized dictation system. Although this document has been carefully reviewed, there might still be some phonetic and typographical errors. Occasional wrong-word or ``sound-alike substitutions may have occurred due to the inherent limitations of voice recognition software. These areas are purely typographical due to imperfections of the software programs and do not reflect any compromise in the patient's medical care. Please read the chart carefully and recognize, using context, where these substitutions have occurred. Plan discussed with: Patient, Other NYHA Physical activity limitations: Class4(Severe)discomfort (w any activit,symptoms at rest) Date of Service: Dec 09, 2024 Billing Provider: CRISTY BRICEÑO Cardiology Common Codes: [id number] INP/OBS CARE (High) CRISTY BRICEÑO Dec 09, 2024 10:04
--- NOTE | 2024-12-09 11:08 | DVH ---
INDICATION: CHF TECHNIQUE: Frontal view of the chest. COMPARISON: None FINDINGS: . The heart and mediastinal contours are grossly unremarkable. small bilateral pleural effusions. The bony structures of the chest are intact without fracture. IMPRESSION: 1. Cardiomegaly with CHF
[2024-12-09] MEDS: EMPAGLIFLOZIN 10 MG TAB PO SCH (11:17)
[2024-12-09] MEDS: SACUBITRIL-VALSARTAN 24mg/26mg TAB PO SCH (11:17)
[2024-12-09] MEDS: ENOXAPARIN SOD 30 MG/0.3 ML SYRINGE SC SCH (11:17)
[2024-12-09] MEDS: FUROSEMIDE 40 MG/4 ML VIAL IV ONE (11:18)
--- NOTE | 2024-12-09 11:59 | DVH ---
Right lower extremity venous duplex Clinical History: Unilateral edema Comparison: None Findings: Duplex Doppler evaluation of the deep venous system of the right lower extremity from the common femo ral vein to the popliteal vein including color Doppler and spectral/pulsed waveform analysis was perf ormed. The common femoral vein demonstrates appropriate compressibility and waveform variability. There is compressibility/patency of the great saphenous vein at the proximal thigh. The femoral vein demonstrates appropriate compressibility and waveform variability. The deep femoral vein demonstrates appropriate compressibility and waveform variability. The popliteal vein demonstrates appropriate compressibility and waveform variability. There is normal compressibility at the tibioperoneal trunk. Impression: No right femoropopliteal venous thrombosis. If clinical concern/symptoms persist or worsen, short-interval follow-up study is suggested.
--- NOTE | 2024-12-09 13:48 | DVHINCON2 ---
GI Consult Consult Note GI consult note Date of Consultation: 12/09/2024 Chief Complaint: Transaminitis Referring Physician: Dany MILLER H&P: 64-year-old male admitted with complains of generalized weakness. Patient reports having right inguinal hernia which has been increasing in size awaiting surgical consult. Patient occasionally has dull epigastric pain, usually with nausea, denies vomiting no hematemesis. Last bowel movements 7-8 days ago, no history of melena or red blood in stool. Patient denies liver problems in the past. Denies alcohol use. Usually takes Naprosyn denies use of Tylenol. No EGD or colonoscopy in past. Last seen by primary care provider in more than 20 years Past Medical History: Denies Past Surgical History: Denies Social History: NO smoking, drinking ETOH and use of illegal drugs. Family History: Noncontributory Review of Systems: Constitutional: no fever, chill, weight loss HEENT: no eye pain, no hearing loss, no oral lesion, no scleral icterus Heart: no chest pain, no chest pressure Lung: no cough, no dyspnea with exertion Abdomen: see HPI Physical exam: General: NAD, AAOX3 Chest: lung martinez clear to auscultation Heart: RRR, no murmur Abdomen: non-distended, no tenderness to palpation, +BS Labs: Labs Test 12/09/24 05:00 12/08/24 14:48 12/08/24 12:00 12/08/24 11:24 Range/Units White Blood Count 7.3 4.4-10.8 10^3/uL Red Blood Count 4.71 4.5-5.90 10^6/uL Hemoglobin 14.3 13.5-17.5 g/dL Hematocrit 43.3 41.0-53.0 % Mean Corpuscular Volume 92.0 80.0-100.0 fL Mean Corpuscular Hemoglobin 30.4 28.0-32.0 pg Mean Corpuscular Hemoglobin Concent 33.1 32.0-36.0 g/dL Red Cell Distribution Width 15.7 H 11.8-14.3 % Platelet Count 291 140-450 10^3/uL Mean Platelet Volume 7.9 6.9-10.8 fL Neutrophils (%) (Auto) 74.7 37.0-80.0 % Lymphocytes (%) (Auto) 10.5 10.0-50.0 % Monocytes (%) (Auto) 14.1 H 0.0-12.0 % Eosinophils (%) (Auto) 0.3 0.0-7.0 % Basophils (%) (Auto) 0.4 0.0-2.0 % Neutrophils # (Auto) 5.5 1.6-8.6 10 ^3/uL Lymphocytes # (Auto) 0.8 0.4-5.4 10 ^3/uL Monocytes # (Auto) 1.0 0-1.3 10 ^3/uL Eosinophils # (Auto) 0 0-0.8 10 ^3/uL Basophils # (Auto) 0 0-0.2 10 ^3/uL Nucleated Red Blood Cells 0.2 % Sodium Level 140 136-145 mmol/L Potassium Level 4.6 3.5-5.1 mmol/L Chloride Level 106 98-107 mmol/L Carbon Dioxide Level 20 20-31 mmol/L Anion Gap 14 5-15 Blood Urea Nitrogen 20 9-23 mg/dL Creatinine 1.44 H 0.700-1.30 mg/dL Glomerular Filtration Rate Calc 55 >90 mL/min BUN/Creatinine Ratio 13.9 10.0-20.0 Serum Glucose 90 74-106 mg/dL Hemoglobin A1c 5.6 <5.7 % A1C Calcium Level 9.0 8.7-10.4 mg/dL Magnesium Level 2.1 1.6-2.6 mg/dL Total Bilirubin 2.9 H 0.2-1.0 mg/dL Aspartate Amino Transferase (AST) 375 H 13-40 U/L Alanine Aminotransferase (ALT) 584 H 7-40 U/L Alkaline Phosphatase 115 46-116 U/L B-Type Natriuretic Peptide 2131.77 0-100 pg/mL Total Protein 6.3 5.7-8.2 g/dL Albumin 3.9 3.2-4.8 g/dL Triglycerides Level 72 < 150 mg/dL Cholesterol Level 94 < 200 mg/dL LDL Cholesterol 70 < 100 mg/dL HDL Cholesterol 18 L 40-59 mg/dL Thyroid Stimulating Hormone (TSH) 5.15 H 0.55-4.78 uIU/mL Lactic Acid Level 2.7 *H 0.4-2.0 mmol/L Troponin I High Sensitivity 75 *H </=54 ng/L Lipase 79 H 12-53 U/L Urine Color Yellow Yellow Urine Clarity Turbid H Clear Urine pH 5.5 5.0-9.0 Urine Specific [place] 1.022 1.001-1.035 Urine Protein Trace H Negative Urine Ketones Negative Negative Urine Blood Negative Negative /uL Urine Nitrite Negative Negative Urine Bilirubin Negative Negative Urine Urobilinogen 3 H Negative mg/dL Urine Leukocyte Esterase 2+ Negative /uL Urine RBC 2 0 - 3 /hpf Urine Microscopic WBC 14 H 0-3 /HPF Urine Squamous Epithelial Cells Few <5 /hpf Urine Bacteria Few H None Seen /hpf Urine Mucus Few None Seen Urine Glucose Normal Normal mg/dL Microbiology Date/Time Source Procedure Growth Status 12/08/24 12:11 Blood Blood Culture - Preliminary NO GROWTH AFTER 24 HOURS OF INCUBATION. Resulted Imaging: CT abdomen pelvis IMPRESSION: 1. Medium right and small left pleural effusions. 2. Question slight nodular contour to the liver. Correlate for underlying liver disease. 3. Mild ascites. 4. Circumferential bladder wall thickening, which may be seen in the setting of acute versus chronic cystitis and correlate with urinalysis. 5. Fat and bowel containing hernia with slight edema. Correlate with clinical exam to exclude incarceration. Abdominal ultrasound IMPRESSION: 1. Gallstones without acute cholecystitis. 2. Small volume of ascites. 3. Bilateral pleural effusions. Assessment: Abdominal pain Transaminitis Gallstones Inguinal hernia Ischemic versus nonischemic cardiomyopathy Heart failure Plan: Discussed with Dr. Pang hepatitis panel KRYSTIAN, ferritin, INR Monitor labs in a.m. Avoid hepatotoxic medications We will continue to follow patient Discussed plan with patient and RN Thank you for this consult Date of Service: Dec 09, 2024 Billing Provider: YVONNE MEYER Common Visit Codes: CONSULT ONLY Consultation Codes: [id number] CONSULT <60MIN YVONNE MEYER Dec 09, 2024 13:48
--- NOTE | 2024-12-09 14:39 | DVHPN2 ---
Subjective Patient continues to report having shortness of breath with exertion Reviewed: Care Plan, H&P, Labs, Medications Changes from previous H/P or p: No Changes General: Per HPI Objective Vitals Vital Signs Date Time Temp Pulse Resp B/P (MAP) Pulse Ox O2 Delivery O2 Flow Rate FiO2 12/09/24 12:50 97.5 84 18 87/50 (62) 95 97.5 12/09/24 07:15 Room Air* 0 21 General Appearance: Alert, Oriented X3, Cooperative, No acute distress HEENT: Atraumatic, PERRLA Lungs: Clear to auscultation, Normal air movement Cardiovascular: Normal S1, Normal S2 Abdomen: Normal bowel sounds, Soft, No tenderness Musculoskeletal: Normal sensory function, Normal motor function Skin: Dry, Intact Psych/Mental Status: Mental status NL, Mood NL Medications Current Medications Medications Dose Ordered Sig/Chitra Route Start Time Stop Time Status Last Admin Dose Admin Pantoprazole Sodium 40 mg DAILY IV 12/09/24 10:00 12/09/24 09:18 40 MG Ceftriaxone Sodium 50 ml @ 100 mls/hr DAILY@09 IV 12/09/24 09:00 12/09/24 09:18 100 MLS/HR Acetaminophen/ Hydrocodone Bitart 1 tab Q4HP PRN PO 12/08/24 23:00 Ondansetron HCl 4 mg Q4HP PRN IV 12/08/24 23:00 Acetaminophen 650 mg Q6HP PRN PO 12/08/24 23:00 Morphine Sulfate 2 mg Q6HPRN PRN IV 12/08/24 23:00 12/09/24 04:27 2 MG Carvedilol 3.125 mg Q12HR PO 12/09/24 10:00 12/09/24 09:11 3.125 MG Aspirin 81 mg DAILY PO 12/09/24 10:00 12/09/24 09:11 81 MG Furosemide 40 mg BIDD IV 12/09/24 18:00 Enoxaparin Sodium 30 mg DAILY SC 12/09/24 10:00 12/09/24 11:17 30 MG Empaglifozin 10 mg DAILY PO 12/09/24 10:00 12/09/24 11:17 10 MG Sacubitril/ Valsartan 0.5 tab BID PO 12/09/24 10:00 12/09/24 11:17 0.5 TAB Laboratory Results Laboratory Tests 12/09/24 05:00 Chemistry Test 12/09/24 05:00 Albumin 3.9 g/dL (3.2-4.8) Calcium Level 9.0 mg/dL (8.7-10.4) Magnesium Level 2.1 mg/dL (1.6-2.6) Total Protein 6.3 g/dL (5.7-8.2) Lipid panel Test 12/09/24 05:00 Cholesterol Level 94 mg/dL (< 200) HDL Cholesterol 18 mg/dL (40-59) L Triglycerides Level 72 mg/dL (< 150) Cardiac Markers Test 12/09/24 05:00 B-Type Natriuretic Peptide 2131.77 pg/mL (0-100) LFT Test 12/09/24 05:00 Alanine Aminotransferase (ALT) 584 U/L (7-40) H Alkaline Phosphatase 115 U/L (46-116) Aspartate Amino Transferase (AST) 375 U/L (13-40) H Total Bilirubin 2.9 mg/dL (0.2-1.0) H HgA1c, TSH Test 12/09/24 05:00 Hemoglobin A1c 5.6 % A1C (<5.7) Thyroid Stimulating Hormone (TSH) 5.15 uIU/mL (0.55-4.78) H Urinalysis Test 12/08/24 11:24 Urine Color Yellow (Yellow) Urine Clarity Turbid (Clear) H Urine pH 5.5 (5.0-9.0) Urine Specific [place] 1.022 (1.001-1.035) Urine Protein Trace (Negative) H Urine Ketones Negative (Negative) Urine Blood Negative /uL (Negative) Urine Nitrite Negative (Negative) Urine Bilirubin Negative (Negative) Urine Urobilinogen 3 mg/dL (Negative) H Urine Leukocyte Esterase 2+ /uL (Negative) Urine RBC 2 /hpf (0 - 3) Urine Microscopic WBC 14 /HPF (0-3) H Urine Squamous Epithelial Cells Few /hpf (<5) Urine Bacteria Few /hpf (None Seen) H Urine Mucus Few (None Seen) Urine Glucose Normal mg/dL (Normal) Microbiology Microbiology Date/Time Source Procedure Growth Status 12/08/24 12:11 Blood Blood Culture - Preliminary NO GROWTH AFTER 24 HOURS OF INCUBATION. Resulted Labs and/or images reviewed: Labs reviewed by me, Image(s) reviewed by me Assessment/Plan Assessment/Plan Impression: -acute decompensated systolic heart failure -elevated LFTs, cholelithiasis, rule out choledocholithiasis -right inguinal hernia -NSTEMI type 2 secondary to decompensated heart failure Plan: -surgical consultation: Pending -cardiology consultation: Discussed case with Grace Bower NP. Continue guideline directed medical therapy -IV diuresis -MRCP -pain management -repeat labs in a.m. Total time spent with patient discussing and formulating plan of care: 35 minutes. This medical document was created using an electronic medical record system with [employer] dictation system. Although this document has been carefully reviewed, there may still be some phonetic and typographical errors. These areas are purely typographical due to imperfections of the software programs, and do not reflect any compromise in the patient's medical care. Plan discussed with: Patient, Other (RN) My Orders Orders - KRYSTAL VERMA NP Procedure Category Date Status Time Mrcp Mri MRI 12/09/24 Transmitted 14:35 Date of Service: Dec 09, 2024 Billing Provider: KRYSTAL VERMA NP Common Visit Codes: [id number] INP/OBS CARE(HIGH) KRYSTAL VERMA NP Dec 09, 2024 14:39
--- NOTE | 2024-12-09 18:28 | DVHSR ---
APPROVED REPORT EXAM: Two-dimensional and M-mode echocardiogram with Doppler and color Doppler. Blood Pressure: 114/79 mmHg INDICATION CHF RISK FACTORS Height: 5'9", Weight: 182 DIMENSIONS LVDd4.8 (3.8-5.7cm)LA (2D)4.8 (1.9-4.0cm)Aortic Root4.0 (2.0-3.7cm) LVDs4.4 (2.5-4.0cm)LA (MM) (1.9-4.0cm)Aortic Cusp Exc (1.5-2.0cm) EF (%) 25.0 (55-70%)Rt. Atrium5.2 (1.9-4.0cm)Asc. Aorta4.1 cm IVSd1.3 (0.7-1.1cm)RV (D)4.8 (1.8-2.4cm) PWd1.4 (0.7-1.1cm) Mitral Valve MitralMitral Stenosis E wave0.75m/sMV Mean GR.mmHg A wave0.50m/sMV Peak GR.mmHg E/A ratio1.52D MVAcm2 DECEL [id number] 1/2 Timems Aortic Valve Aortic ValveAortic Stenosis V10.51m/Korin Mean GR.49mmHg V24.31m/Korin Peak GR.74mmHg LVOT Diameter2.7 (1.8-2.4cm)Doppler AVA0.68cm2 AI P 1/2 Qobg469.53ms Pulmonic Valve V20.34m/s Tricuspid Valve TR Velocity2.55m/s [id number] Conclusion DILATED ALL CARDIAC CHAMBERS GLOBAL LV AND RV HYPOKINESIS LV EF IS ONLY 25% SEVERE CALCIFICATION OF AORTIC LEAFLETS PEAK GRADIENT ACROSS AORTIC VALVE IS 74 MM OF HG AND MEAN GRADIENT IS 49 MM OF HG AORTIC VALVE AREA IS ONLY 0.68 CM SQUARE CRITICAL AORTIC STENOSIS NO EFFUSION MODERATELY SEVERE MR MILD PULMONARY HYPERTENSION
[2024-12-09] MEDS: FUROSEMIDE 40 MG/4 ML VIAL IV SCH (18:34)
--- NOTE | 2024-12-09 18:39 | DVH ---
PROCEDURE: MRI MRCP MRI Indication: rule out cbd stone COMPARISON: 12/08/2024 TECHNIQUE: Multiplanar multisequence images of the abdomen were obtained per MRCP protocol. FINDINGS: Examination degraded by motion. Moderate right and small left pleural effusions. Cardiomegaly. No hydronephrosis. Spleen, pancreas unremarkable in shape. Cholelithiasis and sludge. Pericholecystic edema. Common bile duct normal in caliber measuring 3 mm. No evidence for choledocholithiasis. Pancreatic duct normal in caliber measuring 2 mm. No T2 hyperi ntense lesions within the liver identified. Liver capsule nodular morphology. No hydronephrosis. Stomach is partially distended. Small bowel wall edema/ thickening. Small amount of ascites fluid. Colonic diverticular disease Lumbar dextrocurvature. IMPRESSION: Cholelithiasis and sludge. Pericholecystic edema. This could be secondary to portal hypertension/volume overload however cholecy stitis can not be ruled out. Recommend HIDA scan. Normal caliber common bile duct. No evidence for choledocholithiasis. Possible cirrhotic morphology liver. Correlate with clinical history and appropriate lab values. Mesenteric edema, small amount of ascites fluid. Bilateral pleural effusions. Small bowel wall edema/ thickening can be secondary to enteritis. Cardiomegaly.
--- NOTE | 2024-12-09 22:53 | DVHINCON2 ---
Date Seen: Dec 09, 2024 Referring Physician PAUL Saenz Reason for Consultation CHF History of Present Illness This is a 64-year-old male with a PMH of femur dislocation and right inguinal hernia without repair who presented to the emergency room with a complaint of shortness of breath for one month. The patient complains of progressive shortness of breath worse during the past couple of days and associated with PND, AYNG, orthopnea, bilateral lower extremity edema R>L, increased abdominal girth, and some dizziness. Denies chest pain, palpitations, diaphoresis, or syncopal events. He underwent a 12 lead electrocardiogram revealing a sinus rhythm with lateral T-wave inversion nonspecific changes to rest of leads. Serial troponin levels peaked at 86 ng/L. Per patient, he last saw a PCP at 27 years old. States he only takes naproxen therapy OTC. Patient was admitted to the hospital. I am asked to consult on this patient. Past Medical History Past medical history reviewed. No other significant than mentioned above. Past Surgical History Past surgical history reviewed. No other significant than mentioned above. Family History: Diabetes mellitus G8 FATHER FH: chronic respiratory condition G8 FATHER Allergies: Coded Allergies: NO KNOWN ALLERGIES (Unverified , 12/08/24) Current Medications Current Medications Medications (Trade) Dose Ordered Sig/Chitra Route PRN Reason Start Time Stop Time Status Last Admin Pantoprazole Sodium (Protonix) 40 mg DAILY IV 12/09/24 10:00 12/09/24 09:18 Ceftriaxone Sodium 50 ml @ 100 mls/hr DAILY@09 IV 12/09/24 09:00 12/09/24 09:18 Acetaminophen/ Hydrocodone Bitart (Mott 5/325MG Tab) 1 tab Q4HP PRN PO MODERATE PAIN (4-6 PAIN SCALE) 12/08/24 23:00 Ondansetron HCl (Zofran) 4 mg Q4HP PRN IV NAUSEA / VOMITING 12/08/24 23:00 Acetaminophen (Tylenol Tablet) 650 mg Q6HP PRN PO PAIN SCALE 1-3 OR TEMP>100.4 12/08/24 23:00 Morphine Sulfate 2 mg Q6HPRN PRN IV SEVERE PAIN (7-10 PAIN SCALE) 12/08/24 23:00 12/09/24 21:54 Carvedilol (Coreg Tablet) 3.125 mg Q12HR PO 12/09/24 10:00 12/09/24 21:53 Furosemide (Lasix Tablet) 20 mg DAILY PO 12/09/24 10:00 12/09/24 04:27 DC Aspirin 81 mg DAILY PO 12/09/24 10:00 12/09/24 09:11 Furosemide (Lasix Tablet) 40 mg DAILY PO 12/09/24 04:30 12/09/24 09:54 DC 12/09/24 09:12 Furosemide (Lasix Injection) 40 mg BIDD IV 12/09/24 18:00 12/09/24 18:34 Enoxaparin Sodium (Lovenox) 30 mg DAILY SC 12/09/24 10:00 12/09/24 11:17 Empaglifozin (Jardiance) 10 mg DAILY PO 12/09/24 10:00 12/09/24 11:17 Sacubitril/ Valsartan (Entresto 24-26 Mg tab) 0.5 tab BID PO 12/09/24 10:00 12/09/24 21:52 Review of Systems Constitutional: No symptom reported Ears, Nose, & Throat: No symptom reported Eyes: No symptom reported Neurological: No symptoms reported Pulmonary/Respiratory: SOB, YANG, PND, orthopnea Cardiovascular: BLE edema Gastrointestinal: Increased abdominal girth Genitourinary: No symptom reported Musculoskeletal: No symptom reported Skin: No symptom reported Psychiatric: No symptom reported Endocrine: No symptom reported Hemotologic/Lymphatic: No symptom reported Vital Signs Vital Signs Date Time Temp Pulse Resp B/P (MAP) Pulse Ox O2 Delivery O2 Flow Rate FiO2 12/09/24 21:54 98 19 108/85 12/09/24 20:35 97.9 98 97.9 12/09/24 20:00 Room Air* 0 21 Physical Exam GENERAL: Alert and oriented x 3. No acute distress. EYES: PERRL, EOMI. Anicteric. HENT: Moist mucous membranes. LUNGS: Clear to auscultation bilaterally. CARDIOVASCULAR: Regular rate and rhythm. ABDOMEN: Soft, non-tender and non-distended. EXTREMITIES: Right lower extremity edema. NEUROLOGIC: No focal neurological deficits. SKIN: Warm, dry. Labs/Diagnostic Data Labs Test 12/09/24 16:20 12/09/24 05:00 12/08/24 14:48 9/22/25 12:00 Range/Units POC Glucose 126 H 70-106 mg/dl White Blood Count 7.3 4.4-10.8 10^3/uL Red Blood Count 4.71 4.5-5.90 10^6/uL Hemoglobin 14.3 13.5-17.5 g/dL Hematocrit 43.3 41.0-53.0 % Mean Corpuscular Volume 92.0 80.0-100.0 fL Mean Corpuscular Hemoglobin 30.4 28.0-32.0 pg Mean Corpuscular Hemoglobin Concent 33.1 32.0-36.0 g/dL Red Cell Distribution Width 15.7 H 11.8-14.3 % Platelet Count 291 140-450 10^3/uL Mean Platelet Volume 7.9 6.9-10.8 fL Neutrophils (%) (Auto) 74.7 37.0-80.0 % Lymphocytes (%) (Auto) 10.5 10.0-50.0 % Monocytes (%) (Auto) 14.1 H 0.0-12.0 % Eosinophils (%) (Auto) 0.3 0.0-7.0 % Basophils (%) (Auto) 0.4 0.0-2.0 % Neutrophils # (Auto) 5.5 1.6-8.6 10 ^3/uL Lymphocytes # (Auto) 0.8 0.4-5.4 10 ^3/uL Monocytes # (Auto) 1.0 0-1.3 10 ^3/uL Eosinophils # (Auto) 0 0-0.8 10 ^3/uL Basophils # (Auto) 0 0-0.2 10 ^3/uL Nucleated Red Blood Cells 0.2 % Sodium Level 140 136-145 mmol/L Potassium Level 4.6 3.5-5.1 mmol/L Chloride Level 106 98-107 mmol/L Carbon Dioxide Level 20 20-31 mmol/L Anion Gap 14 5-15 Blood Urea Nitrogen 20 9-23 mg/dL Creatinine 1.44 H 0.700-1.30 mg/dL Glomerular Filtration Rate Calc 55 >90 mL/min BUN/Creatinine Ratio 13.9 10.0-20.0 Serum Glucose 90 74-106 mg/dL Hemoglobin A1c 5.6 <5.7 % A1C Calcium Level 9.0 8.7-10.4 mg/dL Magnesium Level 2.1 1.6-2.6 mg/dL Total Bilirubin 2.9 H 0.2-1.0 mg/dL Aspartate Amino Transferase (AST) 375 H 13-40 U/L Alanine Aminotransferase (ALT) 584 H 7-40 U/L Alkaline Phosphatase 115 46-116 U/L B-Type Natriuretic Peptide 2131.77 0-100 pg/mL Total Protein 6.3 5.7-8.2 g/dL Albumin 3.9 3.2-4.8 g/dL Triglycerides Level 72 < 150 mg/dL Cholesterol Level 94 < 200 mg/dL LDL Cholesterol 70 < 100 mg/dL HDL Cholesterol 18 L 40-59 mg/dL Thyroid Stimulating Hormone (TSH) 5.15 H 0.55-4.78 uIU/mL Lactic Acid Level 2.7 *H 0.4-2.0 mmol/L Troponin I High Sensitivity 75 *H </=54 ng/L Lipase 79 H 12-53 U/L Test 12/08/24 11:24 Range/Units Urine Color Yellow Yellow Urine Clarity Turbid H Clear Urine pH 5.5 5.0-9.0 Urine Specific [place] 1.022 1.001-1.035 Urine Protein Trace H Negative Urine Ketones Negative Negative Urine Blood Negative Negative /uL Urine Nitrite Negative Negative Urine Bilirubin Negative Negative Urine Urobilinogen 3 H Negative mg/dL Urine Leukocyte Esterase 2+ Negative /uL Urine RBC 2 0 - 3 /hpf Urine Microscopic WBC 14 H 0-3 /HPF Urine Squamous Epithelial Cells Few <5 /hpf Urine Bacteria Few H None Seen /hpf Urine Mucus Few None Seen Urine Glucose Normal Normal mg/dL Microbiology Date/Time Source Procedure Growth Status 12/08/24 12:11 Blood Blood Culture - Preliminary NO GROWTH AFTER 24 HOURS OF INCUBATION. Resulted Assessment NSTEMI, questionable type 1. De Kelli decompensated HFrEF, NYHA Class III-IV/Stage D. Ischemic vs non-ischemic cardiomyopathy. Rule out aortic valve disease. Pre-diabetes, newly diagnosed. Elevated LFTs. Likely YOVANA on CKD. Cholelithiasis. Plan/Recommendation I agree with your ongoing assessment and care of plan. Patient has been seen by Penelope Bower NP on my behalf. We have discussed th e plan with the patient. We will continue further cardiac evaluation with a transthoracic echocardiogram to rule out structural heart disease. In the meantime, continue preload and afterload reduction, strict I&Os, daily weight, and fluid restriction. Initiate GDMT for HFrEF and uptitrate as tolerated. Initiate DVT/VTE prophylaxis. Monitor ECG changes closely and notify. Additional plan as per the hospital course. Plan discussed with: Patient NYHA Physical activity limitations: Class4(Severe)discomfort Date of Service: Dec 09, 2024 Billing Provider: LAMONT CASANOVA MD Cardiology Common Codes: [id number] INP/OBS CARE (High) Cardiology Consultation Codes: [id number] CONSULT <45MIN LAMONT CASANOVA MD Dec 09, 2024 22:53
[2024-12-10 00:35] VITALS: BP 86/58; PULSE 83; RESP 19; TEMP 98; O2SAT 96
[2024-12-10 04:38] VITALS: BP 92/57; PULSE 75; RESP 18; TEMP 98; O2SAT 98
[2024-12-10 07:42] LABS: INR 1.59 (0.9-1.15); Prothrombin Time 16.1 sec (9.3-11.8)
[2024-12-10 08:00] VITALS: PULSE 84
[2024-12-10 08:15] LABS: Alanine Aminotransferase 467 U/L (7-40); Albumin 3.5 g/dL (3.2-4.8); Alkaline Phosphatase 106 U/L (46-116); Anion Gap 12 (5-15); BUN/Creatinine Ratio 14.8 (10.0-20.0); Blood Urea Nitrogen 23 mg/dL (9-23); Calcium 8.7 mg/dL (8.7-10.4); Carbon Dioxide 26 mmol/L (20-31); Chloride 100 mmol/L (98-107); Glucose 92 mg/dL (74-106); Potassium 3.8 mmol/L (3.5-5.1); Sodium 138 mmol/L (136-145); Total Protein 6.0 g/dL (5.7-8.2)
[2024-12-10 08:16] LABS: Bilirubin, Total 1.9 mg/dL (0.2-1.0)
[2024-12-10 09:00] VITALS: BP_SYST 111; BP_SYST 115; BP_DIAS 71; BP_DIAS 77; PULSE 75; PULSE 81; RESP 17; TEMP 97.3; TEMP 98.4; O2SAT 97; O2SAT 98
--- NOTE | 2024-12-10 09:09 | DVHPN2 ---
Consult Progress Note Date Seen: Dec 10, 2024 Subjective Patient reports: Feels better Review of Systems: CVS:Normal, RESPIRATORY:Normal, NEURO:Normal Other Systems: Feels better, denies any cardiac symptoms Objective vital signs Vital Sign Date Time Temp Pulse Resp B/P (MAP) Pulse Ox O2 Delivery O2 Flow Rate FiO2 12/10/24 05:41 92/57 12/10/24 04:38 98.0 75 18 98 98.0 12/09/24 20:00 Room Air* 0 21 Total Intake and Output 12/09/24 12/09/24 12/10/24 15:00 23:00 07:00 Intake Total 50 ml 100 ml 840 ml Balance 50 ml 100 ml 840 ml medications Current Medications Medications Dose Ordered Sig/Chitra Route Start Time Stop Time Status Last Admin Dose Admin Pantoprazole Sodium 40 mg DAILY IV 12/09/24 10:00 12/09/24 09:18 40 MG Ceftriaxone Sodium 50 ml @ 100 mls/hr DAILY@09 IV 12/09/24 09:00 12/09/24 09:18 100 MLS/HR Acetaminophen/ Hydrocodone Bitart 1 tab Q4HP PRN PO 12/08/24 23:00 Ondansetron HCl 4 mg Q4HP PRN IV 12/08/24 23:00 Acetaminophen 650 mg Q6HP PRN PO 12/08/24 23:00 Morphine Sulfate 2 mg Q6HPRN PRN IV 12/08/24 23:00 12/09/24 21:54 2 MG Carvedilol 3.125 mg Q12HR PO 12/09/24 10:00 12/09/24 21:53 3.125 MG Aspirin 81 mg DAILY PO 12/09/24 10:00 12/09/24 09:11 81 MG Furosemide 40 mg BIDD IV 12/09/24 18:00 12/10/24 05:41 40 MG Enoxaparin Sodium 30 mg DAILY SC 12/09/24 10:00 12/09/24 11:17 30 MG Empaglifozin 10 mg DAILY PO 12/09/24 10:00 12/09/24 11:17 10 MG Sacubitril/ Valsartan 0.5 tab BID PO 12/09/24 10:00 12/09/24 21:52 0.5 TAB Examination: LUNGS:Normal, CVS:Abnormal (Systolic murmur crescendo decrescendo IV/ radiating to RSB), NEURO:Normal laboratory and microbiology Laboratory Tests 12/10/24 07:12 12/09/24 05:00 Test 12/10/24 07:12 Range/Units Serum Glucose 92 74-106 mg/dL Problem List/Assessment/Plan Problem List/Assessment/Plan NSTEMI, questionable type 1 De Kelli decompensated HFrEF, NYHA Class III-IV/Stage D Dilated cardiomyopathy, ischemic vs non-ischemic Critical aortic valve stenosis Pre-diabetes, newly diagnosed Elevated LFTs, 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 Fenton) Case discussed with Dr. Fenton. A transthoracic echocardiogram revealed LVEF 25% with global LV and RV hypokinesis, severe calcification of aortic leaflets, and aortic valve area at 0.68 cm2 with a peak gradient of 74 mmHg and a mean gradient of 49 mmHg. The patient will be transfer to higher level of care for coronary workup and aortic valve replacement. Tentative transfer to [facility] with Feroz Montero. In the meantime, continue preload and afterload reduction, strict I&Os, daily weight, and fluid restriction. Continue GDMT for HFrEF and uptitrate as tolerated. Continue single- antiplatelet therapy with ASA. Continue DVT/VTE prophylaxis. Monitor ECG changes closely and notify. Further orders per clinical course. Thank you for allowing us to participate in this patient's care. Please call if you have any questions or concerns. This medical document was created using an electronic medical record system with voice recognition software and computerized dictation system. Although this document has been carefully reviewed, there might still be some phonetic and typographical errors. Occasional wrong-word or ``sound-alike substitutions may have occurred due to the inherent limitations of voice recognition software. These areas are purely typographical due to imperfections of the software programs and do not reflect any compromise in the patient's medical care. Please read the chart carefully and recognize, using context, where these substitutions have occurred. Plan discussed with: Patient, Other Date of Service: Dec 10, 2024 Billing Provider: CRISTY BRICEÑO Cardiology Common Codes: [id number] CRISTY BRICEÑO Dec 10, 2024 09:09
[2024-12-10 11:09] LABS: Hepatitis B Surface Antigen Negative (Negative); Hepatitis C Antibody Negative (Negative)
[2024-12-10 13:00] VITALS: BP 95/66; PULSE 86; RESP 19; TEMP 98.1; O2SAT 93
--- NOTE | 2024-12-10 15:29 | DVHPN2 ---
Subjective No changes Reviewed: Care Plan, H&P, Labs, Medications Changes from previous H/P or p: No Changes General: Per HPI Objective Vitals Vital Signs Date Time Temp Pulse Resp B/P (MAP) Pulse Ox O2 Delivery O2 Flow Rate FiO2 12/10/24 13:00 98.1 86 19 95/66 (76) 93 98.1 12/10/24 08:00 Room Air* 0 21 Intake/Output Intake and Output 12/10/24 07:00 Intake Total 990 ml Balance 990 ml Intake Oral 940 ml IV Total 50 ml # Voids 6 General Appearance: Alert, Oriented X3, Cooperative, No acute distress HEENT: Atraumatic, PERRLA Lungs: Clear to auscultation, Normal air movement, Other Cardiovascular: Regular rate, Normal S1, Normal S2, No murmurs, Gallops, Rubs, Other Abdomen: Normal bowel sounds, Soft, No tenderness, No hepatospenomegaly, No masses, Other Musculoskeletal: Normal sensory function, Normal motor function Skin: Dry, Intact Psych/Mental Status: Mental status NL, Mood NL Medications Current Medications Medications Dose Ordered Sig/Chitra Route Start Time Stop Time Status Last Admin Dose Admin Pantoprazole Sodium 40 mg DAILY IV 12/09/24 10:00 12/10/24 11:06 40 MG Ceftriaxone Sodium 50 ml @ 100 mls/hr DAILY@09 IV 12/09/24 09:00 12/10/24 11:06 100 MLS/HR Acetaminophen/ Hydrocodone Bitart 1 tab Q4HP PRN PO 12/08/24 23:00 Ondansetron HCl 4 mg Q4HP PRN IV 12/08/24 23:00 Acetaminophen 650 mg Q6HP PRN PO 12/08/24 23:00 Morphine Sulfate 2 mg Q6HPRN PRN IV 12/08/24 23:00 12/09/24 21:54 2 MG Carvedilol 3.125 mg Q12HR PO 12/09/24 10:00 12/10/24 11:09 3.125 MG Aspirin 81 mg DAILY PO 12/09/24 10:00 12/10/24 11:09 81 MG Furosemide 40 mg BIDD IV 12/09/24 18:00 12/10/24 05:41 40 MG Enoxaparin Sodium 30 mg DAILY SC 12/09/24 10:00 12/10/24 10:00 30 MG Empaglifozin 10 mg DAILY PO 12/09/24 10:00 12/10/24 11:08 10 MG Sacubitril/ Valsartan 0.5 tab BID PO 12/09/24 10:00 12/10/24 11:08 0.5 TAB Laboratory Results Laboratory Tests 12/09/24 05:00 12/10/24 07:12 Chemistry Test 12/10/24 07:12 Albumin 3.5 g/dL (3.2-4.8) Calcium Level 8.7 mg/dL (8.7-10.4) Total Protein 6.0 g/dL (5.7-8.2) Coagulation Test 12/10/24 07:12 Prothrombin Time 16.1 sec (9.3-11.8) H Prothrombin Time INR 1.59 (0.9-1.15) H LFT Test 12/10/24 07:12 Alanine Aminotransferase (ALT) 467 U/L (7-40) H Alkaline Phosphatase 106 U/L (46-116) Aspartate Amino Transferase (AST) 207 U/L (13-40) H Total Bilirubin 1.9 mg/dL (0.2-1.0) H Urinalysis Test 12/08/24 11:24 Urine Color Yellow (Yellow) Urine Clarity Turbid (Clear) H Urine pH 5.5 (5.0-9.0) Urine Specific [place] 1.022 (1.001-1.035) Urine Protein Trace (Negative) H Urine Ketones Negative (Negative) Urine Blood Negative /uL (Negative) Urine Nitrite Negative (Negative) Urine Bilirubin Negative (Negative) Urine Urobilinogen 3 mg/dL (Negative) H Urine Leukocyte Esterase 2+ /uL (Negative) Urine RBC 2 /hpf (0 - 3) Urine Microscopic WBC 14 /HPF (0-3) H Urine Squamous Epithelial Cells Few /hpf (<5) Urine Bacteria Few /hpf (None Seen) H Urine Mucus Few (None Seen) Urine Glucose Normal mg/dL (Normal) Microbiology Microbiology Date/Time Source Procedure Growth Status 12/08/24 12:11 Blood Blood Culture - Preliminary NO GROWTH AFTER 48 HOURS OF INCUBATION. Resulted Labs and/or images reviewed: Labs reviewed by me, Image(s) reviewed by me Assessment/Plan Assessment/Plan Abdominal pain improving Transaminitis improving Cholelithiasis Inguinal hernia Heart failure Plan Discussed with Dr. Pang Patient is in the process of being transferred to higher level of care for possible aortic valve replacement Dr. Pang discussed plan with [facility] hospitalist, that patient is not stable for any surgical intervention for gallbladder at this time Please page GI services if any changes Plan discussed with: Patient, Other ([facility] hospitalist) Date of Service: Dec 10, 2024 Billing Provider: YVONNE MEYER Common Visit Codes: [id number] INP/OBS CARE(HIGH) YVONNE MEYER Dec 10, 2024 15:29
--- NOTE | 2024-12-10 16:14 | DVHDS2 ---
Discharge Summary Date of Admission Dec 08, 2024 at 22:56 Date of Discharge: Dec 10, 2024 Admitting Diagnosis Acute decompensated heart failure Labs/Diagnostic Data: Laboratory Results Test 12/10/24 07:12 12/09/24 16:20 12/09/24 05:00 12/08/24 14:48 Prothrombin Time 16.1 sec (9.3-11.8) Prothrombin Time INR 1.59 (0.9-1.15) Sodium Level 138 mmol/L (136-145) Potassium Level 3.8 mmol/L (3.5-5.1) Chloride Level 100 mmol/L (98-107) Carbon Dioxide Level 26 mmol/L (20-31) Anion Gap 12 (5-15) Blood Urea Nitrogen 23 mg/dL (9-23) Creatinine 1.55 mg/dL (0.700-1.30) Glomerular Filtration Rate Calc 50 mL/min (>90) BUN/Creatinine Ratio 14.8 (10.0-20.0) Serum Glucose 92 mg/dL (74-106) Calcium Level 8.7 mg/dL (8.7-10.4) Ferritin 48.2 ng/mL (22-322) Total Bilirubin 1.9 mg/dL (0.2-1.0) Aspartate Amino Transferase (AST) 207 U/L (13-40) Alanine Aminotransferase (ALT) 467 U/L (7-40) Alkaline Phosphatase 106 U/L (46-116) Total Protein 6.0 g/dL (5.7-8.2) Albumin 3.5 g/dL (3.2-4.8) POC Glucose 126 mg/dl (70-106) White Blood Count 7.3 10^3/uL (4.4-10.8) Red Blood Count 4.71 10^6/uL (4.5-5.90) Hemoglobin 14.3 g/dL (13.5-17.5) Hematocrit 43.3 % (41.0-53.0) Mean Corpuscular Volume 92.0 fL (80.0-100.0) Mean Corpuscular Hemoglobin 30.4 pg (28.0-32.0) Mean Corpuscular Hemoglobin Concent 33.1 g/dL (32.0-36.0) Red Cell Distribution Width 15.7 % (11.8-14.3) Platelet Count 291 10^3/uL (140-450) Mean Platelet Volume 7.9 fL (6.9-10.8) Neutrophils (%) (Auto) 74.7 % (37.0-80.0) Lymphocytes (%) (Auto) 10.5 % (10.0-50.0) Monocytes (%) (Auto) 14.1 % (0.0-12.0) Eosinophils (%) (Auto) 0.3 % (0.0-7.0) Basophils (%) (Auto) 0.4 % (0.0-2.0) Neutrophils # (Auto) 5.5 10 ^3/uL (1.6-8.6) Lymphocytes # (Auto) 0.8 10 ^3/uL (0.4-5.4) Monocytes # (Auto) 1.0 10 ^3/uL (0-1.3) Eosinophils # (Auto) 0 10 ^3/uL (0-0.8) Basophils # (Auto) 0 10 ^3/uL (0-0.2) Nucleated Red Blood Cells 0.2 % Hemoglobin A1c 5.6 % A1C (<5.7) Magnesium Level 2.1 mg/dL (1.6-2.6) B-Type Natriuretic Peptide 2131.77 pg/mL (0-100) Triglycerides Level 72 mg/dL (< 150) Cholesterol Level 94 mg/dL (< 200) LDL Cholesterol 70 mg/dL (< 100) HDL Cholesterol 18 mg/dL (40-59) Thyroid Stimulating Hormone (TSH) 5.15 uIU/mL (0.55-4.78) Lactic Acid Level 2.7 mmol/L (0.4-2.0) Troponin I High Sensitivity 75 ng/L (</=54) Test 12/08/24 12:00 12/08/24 11:24 Lipase 79 U/L (12-53) Hepatitis A IgM Antibody Negative Hepatitis B Surface Antigen Negative (Negative) Hepatitis B Core IgM Antibody Negative (Negative) Hepatitis C Antibody Negative (Negative) Urine Color Yellow (Yellow) Urine Clarity Turbid (Clear) Urine pH 5.5 (5.0-9.0) Urine Specific [place] 1.022 (1.001-1.035) Urine Protein Trace (Negative) Urine Ketones Negative (Negative) Urine Blood Negative /uL (Negative) Urine Nitrite Negative (Negative) Urine Bilirubin Negative (Negative) Urine Urobilinogen 3 mg/dL (Negative) Urine Leukocyte Esterase 2+ /uL (Negative) Urine RBC 2 /hpf (0 - 3) Urine Microscopic WBC 14 /HPF (0-3) Urine Squamous Epithelial Cells Few /hpf (<5) Urine Bacteria Few /hpf (None Seen) Urine Mucus Few (None Seen) Urine Glucose Normal mg/dL (Normal) Other Laboratory Tests 12/10/24 07:12 12/09/24 05:00 Brief Hx & Hospital Course: History of Present Illness 64-year-old male presents for evaluation of generalized weakness. Patient reports a two week history of generalized weakness with multiple complaints including shortness for breath, fatigue, nausea and decreased appetite. He also reports having a right inguinal hernia which he has noticed increasing in size over the past couple of weeks. He states not having a primary care provider and not seen one for over 20 years. Course of hospitalization: Patient had echocardiogram which revealed severe aortic stenosis. Cardiology consultation was obtained. Patient with also has right inguinal hernia, nonobstructive. Patient was also found to have elevated LFTs. MRCP was performed which did not reveal any choledocholithiasis, but did reveal questionable cholecystitis. Patient has no signs of right upper quadrant pain. Probable portal venous congestion from decompensated heart failure. Given patient's critical aortic stenosis, peer to peer review was performed by Dr. Fenton with [facility] who has accepted the patient. Discussion was made with the patient regarding plan of care who is agreeable to have his aortic valve assessed for replacement. Patient will be continued on guideline directed medical therapy, IV diuresis, until transfer. Physical examination General: Alert and Oriented x3. No acute distress. Well-nourished. Eyes: EOMI. Anicteric. HENT: Moist mucous membranes. Lungs: Clear to auscultation bilaterally. No accessory muscle use. Cardiovascular: Regular rate and rhythm. No murmur. No JVD. Abdomen: Soft, non-tender and non-distended. No palpable masses. Extremities: No edema. Non-tender. Skin: No rashes or lesions. Warm. Neurologic: No focal neurological deficits. CN II-XII grossly intact, but not individually tested. Psychiatric: Cooperative. Appropriate mood and affect. Total time spent with patient discussing and formulating plan of care: 35 minutes. This medical document was created using an electronic medical record system with [employer] dictation system. Although this document has been carefully reviewed, there may still be some phonetic and typographical errors. These areas are purely typographical due to imperfections of the software programs, and do not reflect any compromise in the patient's medical care. Consults/Reason for consult Cardiology: Decompensated heart failure General surgery: Right inguinal hernia Gastroenterology: Elevated LFTs Condition at Discharge: Fair Final Diagnosis/Problems List Critical aortic stenosis with decompensated heart failure Secondary diagnosis: -acute decompensated systolic heart failure -elevated LFTs, cholelithiasis, ruled out choledocholithiasis -right inguinal hernia -NSTEMI type 2 secondary to decompensated heart failure Discharge Disposition: Acute Care Facility Discharge Instruct/Medications Diet: Cardiac 2g Na,low cholest Activity: No Restrictions, As Tolerated Follow Up/Referral: Per accepting provider Medications: Refer to medication reconciliation form 36 Discharge Statement: "Patient was advised to return to the ER or call 911 if any headaches, dizziness, shortness of breath, chest pain, abdominal pain, bleeding, fevers, or worsening of medical condition. Patient was counseled about treatment plan, medications, possible side effects, patientverbalized understanding. All questions were answered to the best of my ability. This discharge took greater then 30 minutes in planning, reviewing documentation, counseling the patient, and discussing with other team members." ASSESSMENT ASSESSMENT Assessment Critical aortic stenosis with decompensated heart failure Date of Service: Dec 10, 2024 Billing Provider: KRYSTAL VERMA NP Common Visit Codes: [id number]/OBS DISCH DAY >30min KRYSTAL VERMA NP Dec 10, 2024 16:14
[2024-12-10 16:41] VITALS: BP 105/74; PULSE 83; RESP 17; TEMP 97.8; O2SAT 95
--- NOTE | 2024-12-10 21:15 | DVHPN2 ---
Consult Progress Note Date Seen: Dec 10, 2024 Subjective Patient reports: Feels better Review of Systems: CVS:Normal, RESPIRATORY:Normal, NEURO:Normal Other Systems: Patient was seen and evaluated in follow up. Patient reports feeling better, denies any cardiac symptoms. CM is working on HLOC transfer. 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 Objective vital signs Vital Sign Date Time Temp Pulse Resp B/P (MAP) Pulse Ox O2 Delivery O2 Flow Rate FiO2 12/10/24 13:00 98.1 86 19 95/66 (76) 93 98.1 12/10/24 08:00 Room Air* 0 21 Total Intake and Output 12/09/24 12/09/24 12/10/24 15:00 23:00 07:00 Intake Total 50 ml 100 ml 840 ml Balance 50 ml 100 ml 840 ml medications Current Medications Medications Dose Ordered Sig/Chitra Route Start Time Stop Time Status Last Admin Dose Admin Pantoprazole Sodium 40 mg DAILY IV 12/09/24 10:00 12/10/24 11:06 40 MG Ceftriaxone Sodium 50 ml @ 100 mls/hr DAILY@09 IV 12/09/24 09:00 12/10/24 11:06 100 MLS/HR Acetaminophen/ Hydrocodone Bitart 1 tab Q4HP PRN PO 12/08/24 23:00 Ondansetron HCl 4 mg Q4HP PRN IV 12/08/24 23:00 Acetaminophen 650 mg Q6HP PRN PO 12/08/24 23:00 Morphine Sulfate 2 mg Q6HPRN PRN IV 12/08/24 23:00 12/09/24 21:54 2 MG Carvedilol 3.125 mg Q12HR PO 12/09/24 10:00 12/10/24 11:09 3.125 MG Aspirin 81 mg DAILY PO 12/09/24 10:00 12/10/24 11:09 81 MG Furosemide 40 mg BIDD IV 12/09/24 18:00 12/10/24 05:41 40 MG Enoxaparin Sodium 30 mg DAILY SC 12/09/24 10:00 12/10/24 10:00 30 MG Empaglifozin 10 mg DAILY PO 12/09/24 10:00 12/10/24 11:08 10 MG Sacubitril/ Valsartan 0.5 tab BID PO 12/09/24 10:00 12/10/24 11:08 0.5 TAB Examination: GENERAL:Normal, HEENT:Normal, NECK:Normal, LUNGS:Normal, CVS:Abnormal (Systolic murmur crescendo decrescendo IV/ radiating to RSB), ABDOMEN:Normal, MSK:Normal, SKIN:Normal, NEURO:Normal laboratory and microbiology Laboratory Tests 12/10/24 07:12 12/09/24 05:00 Test 12/10/24 07:12 Range/Units Serum Glucose 92 74-106 mg/dL Problem List/Assessment/Plan Problem List/Assessment/Plan Problem list NSTEMI, questionable type 1. [place] decompensated HFrEF, NYHA Class III-IV/Stage D. Dilated cardiomyopathy, ischemic vs non-ischemic. Critical aortic valve stenosis. Pre-diabetes, newly diagnosed. 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 Likely YOVANA on CKD. Cholelithiasis. Plan/Recommendation Continued all current supportive medical care. Patient has been seen by Penelope Bower NP on my behalf. We have discussed the plan with the patient. A transthoracic echocardiogram revealed LVEF 25% with global LV and RV hypokinesis, severe calcification of aortic leaflets, and aortic valve area at 0.68 cm2 with a peak gradient of 74 mmHg and a mean gradient of 49 mmHg. The patient will be transfer to higher level of care for coronary workup and aortic valve replacement. Tentative transfer to [facility] with [facility]. In the meantime, continue preload and afterload reduction, strict I&Os, daily weight, and fluid restriction. Continue GDMT for HFrEF and uptitrate as tolerated. Continue single-antiplatelet therapy with ASA. Continue DVT/VTE prophylaxis. Monitor ECG changes closely and notify. Additional plan as per the hospital course. Plan discussed with: Patient Date of Service: Dec 10, 2024 Billing Provider: LAMONT CASANOVA MD Cardiology Common Codes: [id number] HOSP CARE([facility] LAMONT CASANOVA MD Dec 10, 2024 15:17
== END 2024-12-10 16:58 | disposition short-term general hospital (02) | DRG 194 ==
LOC: ER 10:56 → OVERFLOW 22:56 → WEST WING 12-09 17:52
PROVIDERS: ADMIT Nurse Practitioner Acute Care; ATTEND Nurse Practitioner Acute Care
DX: I50.23 Acute on chronic systolic (congestive) heart failure (principal); E87.20 Acidosis, unspecified; I21.A1 Myocardial infarction type 2; R18.8 Other ascites; K80.10 Calculus of gallbladder with chronic cholecystitis without obstruction; I35.0 Nonrheumatic aortic (valve) stenosis; I42.0 Dilated cardiomyopathy; K40.90 Unilateral inguinal hernia, without obstruction or gangrene, not specified as recurrent; N39.0 Urinary tract infection, site not specified; R73.03 Prediabetes; R74.01 Elevation of levels of liver transaminase levels; R79.89 Other specified abnormal findings of blood chemistry; Z83.3 Family history of diabetes mellitus
CPT/HCPCS: 36415; 71045; 74176; 74181; 76705; 80053; 80061; 80074; 81001; 82728; 82962; 83036; 83605; 83690; 83735; 83880; 84443; 84484; 85025; 85610; 86038; 87040; 93005; 93306; 93971; 96365; 96375; G0378; J0692; J2405; J2470

== ENCOUNTER 2025-01-05 00:47 | Emergency (ER) | payer MEDICAID ==
[~2025-01-05] VITALS: Ht 180.3 cm; Wt 77.0 kg
[2025-01-05 02:24] LABS: Hematocrit 25.8 % (41.0-53.0); Hemoglobin 8.4 g/dL (13.5-17.5); Mean Corpuscular Hemoglobin 29.3 pg (28.0-32.0); Mean Corpuscular Volume 90.0 fL (80.0-100.0); Nucleated Red Blood Cells % 0.1 %
[2025-01-05 02:38] LABS: Alanine Aminotransferase 31 U/L (7-40); Alkaline Phosphatase 78 U/L (46-116); Anion Gap 10 (5-15); BUN/Creatinine Ratio 20.7 (10.0-20.0); Calcium 8.8 mg/dL (8.7-10.4); Carbon Dioxide 25 mmol/L (20-31); Chloride 102 mmol/L (98-107); Glucose 83 mg/dL (74-106); Potassium 4.7 mmol/L (3.5-5.1); Sodium 137 mmol/L (136-145); Total Protein 6.9 g/dL (5.7-8.2)
[2025-01-05 02:39] LABS: Albumin 3.9 g/dL (3.2-4.8); Bilirubin, Total 1.1 mg/dL (0.2-1.0)
[2025-01-05 02:42] LABS: Blood Urea Nitrogen 24 mg/dL (9-23)
[2025-01-05 02:43] LABS: INR 1.66 (0.9-1.15); Partial Thromboplastin Time 34.8 SEC (24.5-34.5); Prothrombin Time 16.7 sec (9.3-11.8)
--- NOTE | 2025-01-05 04:06 | DVH ---
CHEST RADIOGRAPH Indication: sob Technique: Single frontal view of the chest was obtained COMPARISON: XY CHEST PORTABLE on DOS: 12/09/24, US ECHO 2D MODE CARDIAC DOP on DOS: 12/09/24 FINDINGS: Lines and Tubes: None Lungs: Moderate bilateral pleural effusions. No evidence of focal consolidation. No pneumothorax. Cardiomediastinal contours: Unremarkable status post median sternotomy. Bones: Unremarkable IMPRESSION: 1. Moderate bilateral pleural effusions.
[2025-01-05 04:16] VITALS: BP 138/63; RESP 16; TEMP 98.3; O2SAT 97
[2025-01-05 04:18] VITALS: PULSE 52
--- NOTE | 2025-01-05 04:18 | ED.PDOC ---
History of Present Illness HPI Comments 64 y/o M presents with c/c of shortness of breath. Patient endorses on being short of breath for over the past 6x months but reports concern for most recent episode onset 2x days ago, due to recent aortic valve replacement surgery 3x weeks ago at [facility]. Additional significant history of aortic stenosis with decompensated systolic heart failure with NSTEMI II. He denies having any chest pain or further acute symptoms. Chief Complaint: Shortness of Breath Time Seen by MD: 01:50 Reviewed Notes: Nurses Notes, Medications, Allergies Allergies: Coded Allergies: NO KNOWN ALLERGIES (Unverified , 12/08/24) Home Meds No Active Prescriptions or Reported Meds Information Source: Patient Mode of Arrival: Ambulatory Severity: Moderate Timing: Hours Duration: Since onset Prehospital treatment: None Past Medical History PAST MEDICAL HISTORY: Gallstones, [place] (NSTEMI II) Past Medical History (Other): aortic stenosis with decompensated heart failure acute decompensated systolic heart failure right inguinal hernia Surgical History (Other): Aortic valve replacement Family History Family History: Reviewed,noncontributory to illness Social History Smoker: Non-Smoker Alcohol: Denies ETOH Use Drugs: Denies Drug Use Lives In: Home All Other Systems: Reviewed and Negative (As per HPI) Physical Exam General Appearance: No Apparent Distress, Normal, Other (mild anxiety ) HEENT: Normal ENT Inspection, Pharynx Normal, TMs Normal Neck: Full Range of Motion, Non-Tender, Normal, Normal Inspection Respiratory: Chest Non-Tender, Lungs Clear, No Accessory Muscle Use, No Respiratory Distress, Normal Breath Sounds Cardiovascular: No Edema, No JVD, No Murmur, No Gallop, Normal Peripheral Pulses, Regular Rate/Rhythm Breast Exam: Deferred Gastrointestinal: No Organomegaly, Non Tender, No Pulsatile Mass, Normal Bowel Sounds, Soft Genitalia: Deferred Pelvic: Deferred Rectal: Deferred Extremities: No calf tenderness, Normal capillary refill, Normal inspection, Normal range of motion, Non-tender, No pedal edema Musculoskeletal : Apperance: Normal Neurologic: Alert, product development carpenter II-XII nml as Tested, No Motor Deficits, Normal Mood, No Sensory Deficits, Other (anxious affect ) Cerebellar Function: Normal Reflexes: Normal Skin: Dry, Normal Color, Warm Lymphatic: No Adenopathy Was a procedure done? Was a procedure done?: No EKG EKG : Pulse Rate (adult): 52 [place]: Normal Cardiac Rhythm: NSR, PVC's Block: None Hypertrophy: None ST: Normal Differential Dx Considerations may include: [place], PE, ACS, URI, PNA, angina, anxiety, post-op complication, among others X-Ray, Labs, Meds, VS Vital Signs Date Time Temp Pulse Resp B/P (MAP) Pulse Ox O2 Delivery O2 Flow Rate FiO2 01/05/25 04:18 52 01/05/25 04:16 98.3 55 16 138/63 (88) 97 98.3 01/05/25 04:16 55 16 97 Room Air 01/05/25 01:06 98.3 54 18 141/82 97 98.3 01/05/25 01:00 55 Lab Test 01/05/25 04:51 01/05/25 03:36 01/05/25 02:03 Range/Units Troponin I High Sensitivity Pending 95 *H 91 *H </=54 ng/L White Blood Count 6.0 4.4-10.8 10^3/uL Red Blood Count 2.86 L 4.5-5.90 10^6/uL Hemoglobin 8.4 L 13.5-17.5 g/dL Hematocrit 25.8 L 41.0-53.0 % Mean Corpuscular Volume 90.0 80.0-100.0 fL Mean Corpuscular Hemoglobin 29.3 28.0-32.0 pg Mean Corpuscular Hemoglobin Concent 32.5 32.0-36.0 g/dL Red Cell Distribution Width 16.5 H 11.8-14.3 % Platelet Count 448 140-450 10^3/uL Mean Platelet Volume 7.6 6.9-10.8 fL Neutrophils (%) (Auto) 69.6 37.0-80.0 % Lymphocytes (%) (Auto) 16.4 10.0-50.0 % Monocytes (%) (Auto) 10.1 0.0-12.0 % Eosinophils (%) (Auto) 2.2 0.0-7.0 % Basophils (%) (Auto) 1.7 0.0-2.0 % Neutrophils # (Auto) 4.2 1.6-8.6 10 ^3/uL Lymphocytes # (Auto) 1.0 0.4-5.4 10 ^3/uL Monocytes # (Auto) 0.6 0-1.3 10 ^3/uL Eosinophils # (Auto) 0.1 0-0.8 10 ^3/uL Basophils # (Auto) 0.1 0-0.2 10 ^3/uL Nucleated Red Blood Cells 0.1 % Prothrombin Time 16.7 H 9.3-11.8 sec Prothrombin Time INR 1.66 H 0.9-1.15 Activated Partial Thromboplast Time 34.8 H 24.5-34.5 SEC D-Dimer, Quantitative 12.34 H 0.0-0.49 mg/L FEU Sodium Level 137 136-145 mmol/L Potassium Level 4.7 3.5-5.1 mmol/L Chloride Level 102 98-107 mmol/L Carbon Dioxide Level 25 20-31 mmol/L Anion Gap 10 5-15 Blood Urea Nitrogen 24 H 9-23 mg/dL Creatinine 1.16 0.700-1.30 mg/dL Glomerular Filtration Rate Calc 71 >90 mL/min BUN/Creatinine Ratio 20.7 H 10.0-20.0 Serum Glucose 83 74-106 mg/dL Lactic Acid Level 1.3 0.4-2.0 mmol/L Calcium Level 8.8 8.7-10.4 mg/dL Total Bilirubin 1.1 H 0.2-1.0 mg/dL Aspartate Amino Transferase (AST) 33 13-40 U/L Alanine Aminotransferase (ALT) 31 7-40 U/L Alkaline Phosphatase 78 46-116 U/L B-Type Natriuretic Peptide 1014.90 0-100 pg/mL Total Protein 6.9 5.7-8.2 g/dL Albumin 3.9 3.2-4.8 g/dL Current Medications Medications (Trade) Dose Ordered Sig/Chitra Route Start Time Stop Time Status Last Admin Sodium Chloride 1,000 ml @ 1,000 mls/hr Q1H ONCE IV 01/05/25 04:00 01/05/25 04:59 DC 01/05/25 05:11 Time of 1ST Reevaluation: 02:20 Reevaluation 1ST: Unchanged Patient Education/Counseling: Diagnosis, Treatment Family Education/Counseling: No Family Present SEPSIS Sepsis Screen Date sepsis recognized/suspect: Jan 05, 2025 Time Sepsis recognized/suspect: 0109 Recent Procedure: Yes On Antibiotic Therapy: No Respiratory Rate >20: No Heart Rate >90: No Temp<36 C (96.8 F) or >38.3 C: No SBP <90 or MAP <65 mmHG: No New Acute Mental Status Change: No Is the patient on CPAP, BIPAP,: No Physician Orders Chest Portable (01/05/25 01:40) Electrocardigram (01/05/25 01:40) Troponin-I Hs (01/05/25 04:40) Blood Culture (01/05/25 01:40) Ct Angio Chest Contrast (01/05/25 03:54) Ceftriaxone Ivpb Rocephin (01/05/25 05:30) Azithromycin 500mg/ 250ml (Zithromax 50 (01/05/25 05:30) Vital Signs Date Time Temp Pulse Resp B/P (MAP) Pulse Ox O2 Delivery O2 Flow Rate FiO2 01/05/25 04:18 52 01/05/25 04:16 98.3 55 16 138/63 (88) 97 98.3 01/05/25 04:16 55 16 97 Room Air 01/05/25 01:06 98.3 54 18 141/82 97 98.3 01/05/25 01:00 55 Laboratory Tests Test 01/05/25 02:03 Lactic Acid Level 1.3 mmol/L (0.4-2.0) White Blood Count 6.0 10^3/uL (4.4-10.8) Medications Medications Dose Ordered Sig/Chitra Route Start Time Stop Time Status Last Admin Dose Admin Sodium Chloride 1,000 ml @ 1,000 mls/hr Q1H ONCE IV 01/05/25 04:00 01/05/25 04:59 DC 01/05/25 05:11 Departure 1 Departure Time of Disposition: 05:27 Impression: Primary Impression: Pleural effusion Additional Impressions: Pneumonitis Heart valve replaced Disposition: HOME / SELF CARE / HOMELESS Condition: Stable e-Prescriptions No Active Prescriptions or Reported Meds Discharged With: Self Comments Patient was shortness of breath after valve replacement surgery. His D-dimer was quite elevated. We did a CTA of the chest which is negative for PE but he does have pleural effusions. I suspect pneumonitis. Patient was given IV Rocephin and azithromycin antibiotics. Patient will need to be admitted for supportive care and further workup. Critical Care Note Critical Care Time?: Yes (35 min-critical care time only) Critical care comment: Total critical care time: Approximately 36 minutes Due to a high probability of clinically significant, life threatening deterioration, the patient required my highest level of preparedness to intervene emergently and I personally spent this critical care time directly and personally managing the patient. This critical care time included obtaining a history; examining the patient; pulse oximetry; ordering and review of studies; arranging urgent treatment with development of a management plan; evaluation of patient's response to treatment; frequent reassessment; and, discussions with other providers. This critical care time was performed to assess and manage the high probability of imminent, life-threatening deterioration that could result in multi-organ failure. It was exclusive of separately billable procedures and treating other patients. Stability Stability form required: No Heart Score Heart Score: Heart Score Response (Comments) Value History Moderate Suspicious 1 EKG Normal 0 Age 45-64 1 Risk Factors >3 or Hx ASHD 2 Troponin 1-2 x's Normal limit 1 Total 5 I personally scribed for ALEX ANNE MD ([email or web address]) on 01/05/25 at 04:18. Electronically submitted by [employer] ([email or web address]). ALEX ANNE MD Jan 05, 2025 04:18
[2025-01-05] MEDS: IOHEXOL 350 MG/ML 100ML IJ ONE (04:46)
[2025-01-05] MEDS: SODIUM CHLORIDE 0.9% 1,000 ML IV ONE (05:11)
--- NOTE | 2025-01-05 05:21 | DVH ---
CTA Chest with intravenous contrast INDICATION: SOB after heart valve surgery r/o PE COMPARISON: None TECHNIQUE: Multidetector spiral CTA of the chest was performed of the chest with intravenous contrast . PULMONARY ANGIOGRAPHY PROTOCOL was utilized using a bolus-tracking technique centered on the main p ulmonary artery. Axial, coronal and sagittal multiplanar and MIP reformats were performed. Radiation Dose : 1. Chest: CTDI volume is 21.09 mGy. Dose-length product is 844.61 mGy*cm The dose indicators for CT are the volume Computed Tomography (CT) Dose Index (CTDIvol) and the Dose Length Product (DLP), and are measured in units of mGy and mGy-cm, respectively. These indicators are not patient dose, but values generated from the CT scanner acquisition factors. The report includes radiation exposure data for exposures received during this examination. Findings: Pulmonary artery: No pulmonary embolism. Lower neck: Normal thyroid. Lungs: Large right and moderate left pleural effusions. No focal consolidation or pneumothorax. Heart/Vascular Structures: Cardiomegaly and small pericardial effusion. Proximal aortic stent noted s tatus post median sternotomy. Lymph Nodes: No adenopathy Musculoskeletal: No acute osseous abnormality. Soft tissues: Normal. Upper abdomen: Limited portions of the upper abdomen are unremarkable. IMPRESSION: 1. No pulmonary embolism. 2. Large right and moderate left pleural effusions. 3. Cardiomegaly and small pericardial effusion.
[2025-01-05] MEDS ORDERED: AZITHROMYCIN 500MG/ 250ML 250 ML IV ONE (05:30)
--- NOTE | 2025-01-05 08:05 | ECG ---
[facility] Test Date: 2025-01-05 Test Time: 01:00:19 Pat Name: DANIEL ESCOBEDO Department[facility] Patient [id number] Room: Gender: M [employer]: : [id number] Requested By: ALEX ANNE Order Number: [id number] Reading MD: Yoel Phillip Measurements Intervals [place] Rate: 55 P: 0 ID: 0 QRS: 142 QRSD: 142 T: 66 QT: 577 QTc: 552 Interpretive Statements Complete AV block with wide QRS complex Ventricular premature complex Nonspecific intraventricular conduction delay Electronically Signed On 01-12-2025 13:42:03 PDT by Yoel Phillip Please click the below link to view image of tracing.
== END 2025-01-05 06:50 | disposition left against medical advice (07) ==
LOC: ER 00:47
DX: I50.22 Chronic systolic (congestive) heart failure (principal); J18.9 Pneumonia, unspecified organism; Z95.2 Presence of prosthetic heart valve
CPT/HCPCS: 36415; 71045; 71275; 80053; 83605; 83880; 84484; 85025; 85379; 85610; 85730; 87040; 93005; 96360; 99291; J7030; Q9967